=== PATIENT | female | born 1985 | race Caucasian/White ===

== ENCOUNTER 2016-07-25 15:47 | Outpatient (CLI) | payer BC ==
--- NOTE | 2016-07-26 10:20 | US ---
EXAM DATE: 07/25/16 PATIENT'S AGE: 31 Patient: JOSÉ LUIS COLLIER Facility: [place], [place] Site . Site : 1985 Study: US OB Pelvis [id number]/15/2017 5:37:30 PM Ordering Physician: Eusebio Lima Final Report: LIMITED OB ULTRASOUND INDICATION: Decreased movement. FINDINGS/IMPRESSION: Limited sonographic evaluation shows a single, live, intrauterine gestation in cephalic position. There is cardiac activity with a heart rate of 138 BPM. Amniotic fluid volume appears subjectively normal and amniotic fluid index measures 17 centimeters. breathing movements are decreased. gross movements, tone, and amniotic fluid are satisfactory. The total biophysical profile score is therefore 6/8. Dictated by Jeffrey Man MD @ 07/25/2016 6:03:24 PM Dictated by: Jeffrey Man MD @ 07/25/2016 18:04:07 (Electronic Signature) Report Signed by Proxy. KARYN
== END 2016-07-25 18:04 | disposition home or self-care (01) ==
LOC: MW.OB 15:47 → MW.OBCHECK 15:47
PROVIDERS: ATTEND Obstetrics & Gynecology
DX: O36.8190 Decreased fetal movements, unspecified trimester, not applicable or unspecified (principal)
CPT/HCPCS: 59025; 76819; 76819-26

== ENCOUNTER 2016-10-05 01:22 | Inpatient (IN) | payer BC ==
[2016-10-05] MEDS ORDERED: Sodium Chloride 0.9% 2.5 ML Syringe FLUSH PRN (02:08)
[2016-10-05] MEDS ORDERED: Sodium Chloride 0.9% 10 ML Syringe FLUSH PRN (02:08)
[2016-10-05] MEDS ORDERED: Ampicillin 2 GM in Sodium Chloride 0.9% 100 ML IV ONE (02:13)
[2016-10-05] MEDS ORDERED: Lactated Ringers 1,000 ML IV SCH (02:15)
[2016-10-05] MEDS ORDERED: Citric Acid/Sodium Citrate Solution 30 ML Cup PO SCH (02:15)
[2016-10-05] MEDS ORDERED: Oxytocin 10 Units/1 ML SDV ONE ×3 (03:33→06:04)
[2016-10-05] MEDS ORDERED: Morphine PF 10 MG/10 ML SDV ONE (03:33)
[2016-10-05] MEDS ORDERED: Ondansetron 4 MG/2 ML SDV ONE (03:34)
[2016-10-05] MEDS ORDERED: ceFAZolin 2 GM in Premix Bag 1 BAG IV ONE (04:00)
--- NOTE | 2016-10-05 04:20 | PCM.PREANE ---
Preanesthetic Assessment - Anesthesia/Transfusion/Family Hx Anesthesia History: Prior Anesthesia Without Reaction Family History of Anesthesia Reaction: No Transfusion History: No Prior Transfusion(s) - Review of Systems General: No Symptoms Pulmonary: No Symptoms Cardiovascular: No Symptoms Gastrointestinal: No Symptoms Neurological: No Symptoms Other: Reports: None - Physical Assessment NPO Status Date: 10/04/16 NPO Status Time: 21:00 Height: 1.63 m Weight: 74.843 kg ASA Class: 2E Mental Status: Alert & Oriented x3 Airway Class: Mallampati = 2 Dentition: Reports: Normal Dentition Thyro-Mental Finger Breadths: 3 Mouth Opening Finger Breadths: 3 ROM/Head Extension: Full Lungs: Clear to Auscultation, Normal Respiratory Effort Cardiovascular: Regular Rate, Regular Rhythm - Lab Values: Laboratory Last Values WBC 10.78 K/uL (4.0-11.0) 10/05/16 02:30 RBC 3.36 M/uL (4.30-5.90) L 10/05/16 02:30 Hgb 9.2 g/dL (12.0-16.0) L 10/05/16 02:30 Hct 29.1 % (36.0-46.0) L 10/05/16 02:30 MCV 86.6 fL (80.0-98.0) 10/05/16 02:30 MCH 27.4 pg (27.0-32.0) 10/05/16 02:30 MCHC 31.6 g/dL (31.0-37.0) 10/05/16 02:30 RDW Std Deviation 47.2 fl (28.0-62.0) 10/05/16 02:30 RDW Coeff of Mahendra 15 % (11.0-15.0) 10/05/16 02:30 Plt Count 254 K/uL (150-400) 10/05/16 02:30 MPV 10.30 fL (7.40-12.00) 10/05/16 02:30 Nucleated RBC % 0.0 /100WBC 10/05/16 02:30 Nucleated RBCs # 0 K/uL 10/05/16 02:30 Membrane Rupture POSITIVE 10/05/16 01:40 Blood Type B POSITIVE 10/05/16 02:30 Antibody Screen NEGATIVE 10/05/16 02:30 - Allergies Allergies/Adverse Reactions: Allergies Allergy/AdvReac Type Severity Reaction Status Date / Time No Known Allergies Allergy Verified 10/05/16 01:44 - Blood Blood Available: Yes Product(s) Available: PRBC - Acknowledgements Anesthesia Type Planned: Spinal Pt an Appropriate Candidate for the Planned Anesthesia: Yes Alternatives and Risks of Anesthesia Discussed w Pt/Guardian: Yes Pt/Guardian Understands and Agrees with Anesthesia Plan: Yes PreAnesthesia Questionnaire 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: , Other (See Below) Other OB/BYN History: tubal reversal Psychiatric 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: Other (See Below) 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 Smoking Status *Q: Never Smoker - CURRENT (IN HOUSE) MEDS Current Meds: Current Medications Citric Acid/Sodium Citrate (Bicitra Solution) 30 ml PO .ONCE FEDE Lactated Ringer's (Ringers, Lactated) 1,000 mls @ 500 mls/hr IV .BOLUS FEDE Cefazolin Sodium/Dextrose 2 gm (/ Premix) 50 mls @ 100 mls/hr IV ONETIME ONE Stop: 10/05/16 04:29 Sodium Chloride (Saline Flush) 10 ml FLUSH ASDIRECTED PRN PRN Reason: Keep Vein Open Sodium Chloride (Saline Flush) 2.5 ml FLUSH ASDIRECTED PRN PRN Reason: Keep Vein Open Discontinued Medications Ampicillin Sodium 2 gm/ Sodium (Chloride) 100 mls @ 200 mls/hr IV ONETIME ONE Stop: 10/05/16 02:42 Last Admin: 10/05/16 03:04 Dose: 200 mls/hr Morphine Sulfate (Duramorph Pf) Confirm Administered Dose 10 mg .ROUTE .STK-MED ONE Stop: 10/05/16 03:34 Ondansetron HCl (Zofran) Confirm Administered Dose 4 mg .ROUTE .STK-MED ONE Stop: 10/05/16 03:35 Oxytocin (Pitocin) Confirm Administered Dose 10 unit .ROUTE .STK-MED ONE Stop: 10/05/16 03:34 Oxytocin (Pitocin) Confirm Administered Dose 10 unit .ROUTE .STK-MED ONE Stop: 10/05/16 03:34
[2016-10-05] MEDS ORDERED: fentaNYL 100 MCG/2 ML SDV IVPUSH PRN (04:35)
[2016-10-05] MEDS ORDERED: Nalbuphine 10 MG/1 ML Vial IVPUSH PRN (04:35)
[2016-10-05] MEDS ORDERED: diphenhydrAMINE 50 MG/ML SDV IVPUSH PRN ×2 (04:38→06:10)
[2016-10-05] MEDS ORDERED: Naloxone 0.4 MG/ML Syringe IVPUSH PRN (04:39)
[2016-10-05] MEDS ORDERED: Phenylephrine/Normal Saline 100 MCG/ML 10 ML Syringe ONE (05:03)
[2016-10-05] MEDS ORDERED: ePHEDrine 50 MG/ML SDV ONE (05:06)
[2016-10-05] MEDS ORDERED: Sodium Chloride 0.9% 20 ML ONE (05:07)
[2016-10-05] MEDS ORDERED: Octyl 2-Cyanoacrylate 1 Tube ONE (05:33)
[2016-10-05] MEDS ORDERED: Acetaminophen/oxyCODONE 325-5 MG Tab PO PRN ×2 (06:00→06:10)
--- NOTE | 2016-10-05 06:09 | PCM.OPNOTE ---
- General Post-Op/Procedure Note Date of Surgery/Procedure: 10/05/16 Operative Procedure(s): repeat low transverse Findings: liveborn male 7/9 weight 3620 grams, normal appearing uterus tubes and ovaries, omental adhesions lysed. Retracted cicatrix excision and dense subcutaneous adhesions lysed. Pre Op Diagnosis: 39 weeks SROM prior desires repeat Post-Op Diagnosis: Same Anesthesia Technique: Spinal Primary Surgeon: Nedra Garza Anesthesia Provider: Chetan Bill Hop Picker: Sanam Álvarez Pathology: none Fluid Replacement, Intraop: 3,000 Output, Urine Amount: 550 EBL in mLs: 600 Complications: None known Condition: Good Free Text/Narrative:: Intake & Output 10/04/16 10/04/16 10/05/16 14:59 22:59 06:59 Intake Total 1100 Balance 1100
[2016-10-05] MEDS ORDERED: Lanolin 100% Cream 7 GM Tube TOP PRN (06:10)
[2016-10-05] MEDS ORDERED: Ondansetron 4 MG/2 ML SDV IVPUSH PRN (06:10)
[2016-10-05] MEDS ORDERED: Bisacodyl 10 MG Supp RECTAL PRN (06:10)
--- NOTE | 2016-10-05 06:36 | PCM.POSTAN ---
POST ANESTHESIA ASSESSMENT - MENTAL STATUS Mental Status: Alert, Oriented - RESPIRATORY Respiratory Status: respiratory rate WNL, Airway Patent, O2 Saturation Stable - CARDIOVASCULAR CV Status: Pulse Rate WNL, Blood Pressure Stable - GASTROINTESTINAL GI Status: No Symptoms - POST OP HYDRATION Hydration Status: Adequate & Stable
[2016-10-05] MEDS: Ketorolac 30 MG/ML SDV IVPUSH SCH ×3 (06:37→18:35)
--- NOTE | 2016-10-05 07:36 | OR ---
SURGEON: Nedra Garza M.D. DATE OF PROCEDURE: 10/05/2016 PREOPERATIVE DIAGNOSES: 1. A 39-week intrauterine . 2. Spontaneous rupture of membranes. 3. Prior delivery. 4. Desires repeat. POSTOPERATIVE DIAGNOSES: 1. A 39-week intrauterine . 2. Spontaneous rupture of membranes. 3. Prior delivery. 4. Desires repeat. PROCEDURE: Repeat low transverse section. ANESTHESIA: Spinal. ESTIMATED BLOOD LOSS: 600 mL. FLUIDS: 3000 mL crystalloid. URINE OUTPUT: 550 mL. FINDINGS: Liveborn male, score 7 and 9, weight is 3620 g. Normal-appearing uterus, tubes, and ovaries. There were omental adhesions to the anterior uterus, which were lysed. There were dense adhesions between the retracted cicatrix and the fascia, which were lysed as well as lysis of the subcutaneous adhesions. COMPLICATIONS: None known. DISPOSITION: Stable. Mother is in Recovery in good condition. is in nursery in good condition. BRIEF HISTORY: This is a 31-year-old female. She is G3, P2-0-0-2. She presents at 39 weeks' gestation with spontaneous rupture of membranes, clear fluid, positive AmniSure, category 1 heart tones. She is known to be group B strep positive. She did immediately received ampicillin 2 g IV and arrangements were made to proceed with her repeat delivery with risks having been discussed including bleeding, infection, injury to bowel, bladder, blood vessels, or other organs, risk of thromboembolic event, risk of anesthesia. Understanding these risks, she does desire to proceed. Her preop hemoglobin was 9.2. She has been anemic throughout her and is taking iron, additionally she has a personal history of HSV, but denies any symptoms of burning or irritation on the vulva at this time. DESCRIPTION OF PROCEDURE: With the patient in the left tilt position, under adequate spinal analgesia, the abdomen was prepped with chlorhexidine and draped in usual fashion for abdominal surgery. SCDs were in place. Dutta catheter had been placed and an appropriate time-out was held. After documentation of adequate analgesia, the cicatrix as well as some skin surrounding the cicatrix that was deeply retracted were excised using a scalpel and the tissue from the underlying fascia. The cicatrix was then discarded. The fascia was further incised using a scalpel in the midline to score the fascia transversely and extending the incision with curved Dove scissors. The fascia was elevated from the underlying rectus muscle, near the incision line there were dense adhesions that were lysed carefully with sharp and blunt dissection, and the rectus muscle and peritoneum were then in the midline using sharp and blunt dissection. The Joey O retractor was placed. There were some adhesions between the bladder and the visceroperitoneum of the lower uterine segment. These were lysed and an adequate bladder flap was developed. A transverse curvilinear incision was made over the lower uterine segment with a scalpel. A finger was used to enter the uterine cavity. The amniotic membranes were bulging and were ruptured at the level of the incision. The head was delivered via the incision after the incision had been extended by blunt dissection. The infant was bulb suctioned by nose and mouth. The remainder of the infant's body was delivered and at the mother's request the cord was delayed to be clamped by approximately 1 minute. It was then doubly clamped, cut, and the infant was handed to Dr. Crystal, who was in attendance at delivery. The infant was a liveborn male, score 7 and 9 (although the baby was vigorous, crying, and centrally pink when handed off). The cord blood was collected for cord ABGs as well as routine cord blood sampling. The placenta was removed by manual extraction. The uterus was cleaned with a dry laparotomy tape. The cervix was opened with a ring forceps and the uterine incision was then closed with a running lock suture of 0 Polysorb followed by an imbricating layer of 0 Polysorb. The posterior cul-de- sac pericolic gutters were carefully cleaned and inspected. The tubes and ovaries were inspected as she had a prior tubal reversal. There were some adhesions on the left anterior uterus that were lysed with electrocautery. The uterine incision was again inspected. It was completely hemostatic. Therefore, the Joey O retractor was removed. The visceral peritoneum and the rectus muscles were loosely approximated in midline using a running mattress suture of 0 Polysorb. Prior to closure, the uterine incision was again inspected and it remained completely hemostatic. The posterior aspect of the fascia was inspected and there were no areas of bleeding, therefore the fascial incision was closed with a running lock suture of 0 Polysorb. The deep subcutaneous tissue was reapproximated with a running suture of 3-0 plain and the subcutaneous tissue was reapproximated using a running subcuticular suture of 3-0 Polysorb. Skin glue was then used to complete the closure. Final sponge, needle, and instrument count were reported as correct. There were no known complications. is in nursery in good condition. Mother remains in Recovery in good condition. MATTI OSBORN /[id number]
[2016-10-05] MEDS: Lactated Ringers 1,000 ML IV SCH ×2 (08:45→18:44)
--- NOTE | 2016-10-05 15:26 | PCM48HPAN ---
Post Anesthesia Note - EVALUATION WITHIN 48HRS OF ANESTHETIC Vital Signs in Normal Range: Yes Patient Participated in Evaluation: Yes Respiratory Function Stable: Yes Airway Patent: Yes Cardiovascular Function Stable: Yes Hydration Status Stable: Yes Pain Control Satisfactory: Yes Nausea and Vomiting Control Satisfactory: Yes Mental Status Recovered: Yes
[2016-10-05] MEDS: Docusate Sodium 100 MG Cap PO SCH (21:35)
[2016-10-06] MEDS: Ketorolac 30 MG/ML SDV IVPUSH SCH ×2 (00:20→06:12)
--- NOTE | 2016-10-06 08:34 | PCM.PNPP ---
<Josie Garrido - Last Filed: 10/06/16 08:39> - General Info Date of Service: 10/06/16 Functional Status: Reports: Pain Controlled, Tolerating Diet, Ambulating, Urinating - Review of Systems General: Denies: Fever, Weakness, Fatigue Pulmonary: Denies: Shortness of Breath, Pleuritic Chest Pain, Cough Cardiovascular: Denies: Chest Pain, Palpitations, Dyspnea on Exertion Gastrointestinal: Denies: Abdominal Pain Genitourinary: Denies: Dysuria - General Info Date of Service: 10/06/16 - Patient Data Vital Signs - Most Recent: Last Vital Signs Temp 36.8 C 10/06/16 04:00 Pulse 99 10/06/16 05:19 Resp 17 10/06/16 05:19 BP 111/65 10/06/16 04:00 Pulse Ox 99 10/06/16 05:19 Weight - Most Recent: 74.843 kg I&O - Last 24 Hours: Intake & Output 10/05/16 10/06/16 10/06/16 22:59 06:59 14:59 Intake Total 2200 Output Total 1200 2200 Balance 1000 -2200 Lab Results - Last 24 Hours: Laboratory Results - last 24 hr 10/06/16 Range/Units 05:05 Hgb 6.6 L (12.0-16.0) g/dL Hct 20.7 L (36.0-46.0) % Med Orders - Current: Current Medications Bisacodyl (Dulcolax) 10 mg RECTAL .ONCE PRN PRN Reason: Constipation Citric Acid/Sodium Citrate (Bicitra Solution) 30 ml PO .ONCE FEDE Last Admin: 10/05/16 04:47 Dose: 30 ml Diphenhydramine HCl (Benadryl) 25 mg IVPUSH Q6H PRN PRN Reason: Itching or Nausea Docusate Sodium (Colace) 100 mg PO BID FEDE Last Admin: 10/05/16 21:35 Dose: 100 mg Emollient Ointment (Lansinoh Hpa) 0 gm TOP ASDIRECTED PRN PRN Reason: Sore Nipples Lactated Ringer's (Ringers, Lactated) 1,000 mls @ 500 mls/hr IV .BOLUS [facility] Last Admin: 10/05/16 04:39 Dose: 999 mls/hr Lactated Ringer's (Ringers, Lactated) 1,000 mls @ 125 mls/hr IV ASDIRECTED [facility] Last Infusion: 10/05/16 16:45 Dose: Infused Ibuprofen (Motrin) 800 mg PO Q8H PRN PRN Reason: mild pain or fever Ondansetron HCl (Zofran) 4 mg IVPUSH Q4H PRN PRN Reason: Nausea/Vomiting Last Admin: 10/05/16 12:07 Dose: 4 mg Oxycodone/Acetaminophen (Percocet 325-5 Mg) 1 - 2 tab PO Q4H PRN PRN Reason: Pain (moderate 4-6) Sodium Chloride (Saline Flush) 10 ml FLUSH ASDIRECTED PRN PRN Reason: Keep Vein Open Sodium Chloride (Saline Flush) 2.5 ml FLUSH ASDIRECTED PRN PRN Reason: Keep Vein Open Discontinued Medications Diphenhydramine HCl (Benadryl) 25 - 50 mg IVPUSH Q4H PRN PRN Reason: Itching Stop: 10/06/16 06:38 Ephedrine Sulfate (Ephedrine Sulfate) Confirm Administered Dose 50 mg .ROUTE .STK-MED ONE Stop: 10/05/16 05:07 Fentanyl (Sublimaze) 50 - 100 mcg IVPUSH Q5M PRN PRN Reason: Breakthrough Pain Stop: 10/06/16 04:36 Ampicillin Sodium 2 gm/ Sodium (Chloride) 100 mls @ 200 mls/hr IV ONETIME ONE Stop: 10/05/16 02:42 Last Admin: 10/05/16 03:04 Dose: 200 mls/hr Cefazolin Sodium/Dextrose 2 gm (/ Premix) 50 mls @ 100 mls/hr IV ONETIME ONE Stop: 10/05/16 04:29 Last Admin: 10/05/16 22:55 Dose: Not Given Sodium Chloride (Normal Saline) Confirm Administered Dose 20 mls @ as directed .ROUTE .STK-MED ONE Stop: 10/05/16 05:08 Ketorolac Tromethamine (Toradol) 30 mg IVPUSH Q6H [facility] Stop: 10/06/16 06:01 Last Admin: 10/06/16 06:12 Dose: 30 mg Morphine Sulfate (Duramorph Pf) Confirm Administered Dose 10 mg .ROUTE .STK-MED ONE Stop: 10/05/16 03:34 Nalbuphine HCl (Nubain) 2.5 - 10 mg IVPUSH Q3H PRN PRN Reason: Pruritis Stop: 10/06/16 06:37 Naloxone HCl (Narcan) 0.1 mg IVPUSH ONETIME PRN PRN Reason: Respiratory Depression Stop: 10/06/16 04:39 Octyl Cyanoacrylate (Dermabond Advance) Confirm Administered Dose 1 applic .ROUTE .STK-MED ONE Stop: 10/05/16 05:34 Ondansetron HCl (Zofran) Confirm Administered Dose 4 mg .ROUTE .STK-MED ONE Stop: 10/05/16 03:35 Oxycodone/Acetaminophen (Percocet 325-5 Mg) 1 - 2 tab PO Q4H PRN PRN Reason: Breakthrough Pain Stop: 10/06/16 06:00 Oxytocin (Pitocin) Confirm Administered Dose 10 unit .ROUTE .STK-MED ONE Stop: 10/05/16 03:34 Oxytocin (Pitocin) Confirm Administered Dose 10 unit .ROUTE .STK-MED ONE Stop: 10/05/16 03:34 Oxytocin (Pitocin) Confirm Administered Dose 20 unit .ROUTE .STK-MED ONE Stop: 10/05/16 06:05 Phenylephrine HCl (Phenylephrine In Ns 100 Mcg/Ml) Confirm Administered Dose 1 mg .ROUTE .STK-MED ONE Stop: 10/05/16 05:04 - Infant Interaction Disposition, : to Nursery Infant Interaction: Holding Feeding: Attempted ; Nursed Fair/Poor Support Person: - Recovery Exam Fundal Tone: Firm Fundal Level: At Umbilicus Fundal Placement: Midline Lochia Amount: Small Lochia Color: Rubra/Red Perineum Description: Intact, Minimal Bruising/Swelling Episiotomy/Laceration: None Bladder Status: Indwelling Catheter in Place Urinary Elimination: Indwelling Catheter - Exam General: Alert, Oriented Neck: Supple Lungs: Clear to Auscultation, Normal Respiratory Effort Cardiovascular: Regular Rate, Regular Rhythm GI/Abdominal Exam: Normal Bowel Sounds, Soft, Non-Tender Psy/Mental Status: Alert - Problem List & Annotations (1) delivery delivered SNOMED Code(s): 598243030 Code(s): O82 - ENCOUNTER FOR DELIVERY WITHOUT INDICATION Status: Acute - Problem List Review Problem List Initiated/Reviewed/Updated: Yes - Assessment Assessment:: POD#1 from RLTCS. Minimal pain an lochia. Vital signs WNL. Denies orthostatic changes. Will continue iron supplementation. Will start patient on Wellbutrin 150mg PO daily for hx of depression/anxiety. - Plan Plan:: Continue routine postop cares. <Nedra Garza - Last Filed: 10/06/16 18:33> - Patient Data Vital Signs - Most Recent: Last Vital Signs Temp 36.6 C 10/06/16 09:00 Pulse 95 10/06/16 09:00 Resp 18 10/06/16 09:00 BP 133/85 10/06/16 09:00 Pulse Ox 100 10/06/16 09:00 I&O - Last 24 Hours: Intake & Output 10/06/16 10/06/16 10/06/16 06:59 14:59 22:59 Output Total 2200 Balance -2200 Lab Results - Last 24 Hours: Laboratory Results - last 24 hr 10/06/16 Range/Units 05:05 Hgb 6.6 L (12.0-16.0) g/dL Hct 20.7 L (36.0-46.0) % Med Orders - Current: Current Medications Discontinued Medications Bisacodyl (Dulcolax) 10 mg RECTAL .ONCE PRN PRN Reason: Constipation Citric Acid/Sodium Citrate (Bicitra Solution) 30 ml PO .ONCE FEDE Last Admin: 10/05/16 04:47 Dose: 30 ml Diphenhydramine HCl (Benadryl) 25 - 50 mg IVPUSH Q4H PRN PRN Reason: Itching Stop: 10/06/16 06:38 Diphenhydramine HCl (Benadryl) 25 mg IVPUSH Q6H PRN PRN Reason: Itching or Nausea Docusate Sodium (Colace) 100 mg PO BID FEDE Last Admin: 10/06/16 09:18 Dose: 100 mg Emollient Ointment (Lansinoh Hpa) 0 gm TOP ASDIRECTED PRN PRN Reason: Sore Nipples Ephedrine Sulfate (Ephedrine Sulfate) Confirm Administered Dose 50 mg .ROUTE .STK-MED ONE Stop: 10/05/16 05:07 Fentanyl (Sublimaze) 50 - 100 mcg IVPUSH Q5M PRN PRN Reason: Breakthrough Pain Stop: 10/06/16 04:36 Lactated Ringer's (Ringers, Lactated) 1,000 mls @ 500 mls/hr IV .BOLUS [facility] Last Admin: 10/05/16 04:39 Dose: 999 mls/hr Ampicillin Sodium 2 gm/ Sodium (Chloride) 100 mls @ 200 mls/hr IV ONETIME ONE Stop: 10/05/16 02:42 Last Admin: 10/05/16 03:04 Dose: 200 mls/hr Cefazolin Sodium/Dextrose 2 gm (/ Premix) 50 mls @ 100 mls/hr IV ONETIME ONE Stop: 10/05/16 04:29 Last Admin: 10/05/16 22:55 Dose: Not Given Sodium Chloride (Normal Saline) Confirm Administered Dose 20 mls @ as directed .ROUTE .STK-MED ONE Stop: 10/05/16 05:08 Lactated Ringer's (Ringers, Lactated) 1,000 mls @ 125 mls/hr IV ASDIRECTED [facility] Last Infusion: 10/05/16 16:45 Dose: Infused Ibuprofen (Motrin) 800 mg PO Q8H PRN PRN Reason: mild pain or fever Last Admin: 10/06/16 11:56 Dose: 800 mg Ketorolac Tromethamine (Toradol) 30 mg IVPUSH Q6H [facility] Stop: 10/06/16 06:01 Last Admin: 10/06/16 06:12 Dose: 30 mg Morphine Sulfate (Duramorph Pf) Confirm Administered Dose 10 mg .ROUTE .STK-MED ONE Stop: 10/05/16 03:34 Nalbuphine HCl (Nubain) 2.5 - 10 mg IVPUSH Q3H PRN PRN Reason: Pruritis Stop: 10/06/16 06:37 Naloxone HCl (Narcan) 0.1 mg IVPUSH ONETIME PRN PRN Reason: Respiratory Depression Stop: 10/06/16 04:39 Octyl Cyanoacrylate (Dermabond Advance) Confirm Administered Dose 1 applic .ROUTE .STK-MED ONE Stop: 10/05/16 05:34 Ondansetron HCl (Zofran) Confirm Administered Dose 4 mg .ROUTE .STK-MED ONE Stop: 10/05/16 03:35 Ondansetron HCl (Zofran) 4 mg IVPUSH Q4H PRN PRN Reason: Nausea/Vomiting Last Admin: 10/05/16 12:07 Dose: 4 mg Oxycodone/Acetaminophen (Percocet 325-5 Mg) 1 - 2 tab PO Q4H PRN PRN Reason: Breakthrough Pain Stop: 10/06/16 06:00 Oxycodone/Acetaminophen (Percocet 325-5 Mg) 1 - 2 tab PO Q4H PRN PRN Reason: Pain (moderate 4-6) Last Admin: 10/06/16 12:30 Dose: 1 tab Oxytocin (Pitocin) Confirm Administered Dose 10 unit .ROUTE .STK-MED ONE Stop: 10/05/16 03:34 Oxytocin (Pitocin) Confirm Administered Dose 10 unit .ROUTE .STK-MED ONE Stop: 10/05/16 03:34 Oxytocin (Pitocin) Confirm Administered Dose 20 unit .ROUTE .STK-MED ONE Stop: 10/05/16 06:05 Phenylephrine HCl (Phenylephrine In Ns 100 Mcg/Ml) Confirm Administered Dose 1 mg .ROUTE .STK-MED ONE Stop: 10/05/16 05:04 Sodium Chloride (Saline Flush) 10 ml FLUSH ASDIRECTED PRN PRN Reason: Keep Vein Open Sodium Chloride (Saline Flush) 2.5 ml FLUSH ASDIRECTED PRN PRN Reason: Keep Vein Open - Problem List Review Problem List Initiated/Reviewed/Updated: Yes - My Orders Last 24 Hours: My Active Orders 10/06/16 16:30 Ready for Discharge [RC] PER UNIT ROUTINE - Plan Plan:: Patient was seen and examined by me. She denies dizziness or fatigue, ambulates without difficulty related to her anemia, has she has had chronic anemia through the . She will continue to take iron. Discharge instructions were reviewed as I anticipate baby may be transferred. Reviewed precautions to walk every 1-2 hours if she travels maintain hydration, no driving for 2 weeks and no lifting more than 10 #
[2016-10-06] MEDS: Docusate Sodium 100 MG Cap PO SCH (09:18)
[2016-10-06] MEDS ORDERED: Ibuprofen 800 MG Tab PO PRN (12:00)
[2016-10-06 15:33] VITALS: BP 133/85
== END 2016-10-06 13:54 | disposition home or self-care (01) | DRG 540 ==
LOC: MW.OBCHECK 01:22 → MW.OB 01:25 → MW.OBCHECK 02:08 → MW.OB 05:06
PROVIDERS: ADMIT Obstetrics & Gynecology; ATTEND Obstetrics & Gynecology
PROC: 10D00Z1 Extraction of Products of Conception, Low, Open Approach (ICD-10-PCS; principal; 2016-10-05)
DX: O42.02 Full-term premature rupture of membranes, onset of labor within 24 hours of rupture (principal); O99.824 Streptococcus B carrier state complicating childbirth; Z3A.39 39 weeks gestation of pregnancy; Z37.0 Single live birth
CPT/HCPCS: 01961; 36415; 59025; 84112; 85014; 85018; 85027; 86850; 86900; 86901; A9270-GY; J0290; J0690; J1885; J2270; J2405; J2590; J7030; J7120

== ENCOUNTER 2020-03-07 21:33 | Emergency (ER) | payer BC ==
--- NOTE | 2020-03-07 22:01 | EDM.PDOC ---
ED HPI GENERAL MEDICAL PROBLEM - General Chief Complaint: General Stated Complaint: COUGH, TROUBLE BREATHING, CHEST PAIN Time Seen by Provider: 03/07/20 21:36 Source of Information: Reports: Patient History Limitations: Reports: No Limitations - History of Present Illness INITIAL COMMENTS - FREE TEXT/NARRATIVE: 34-year-old female presents today for chest pain body aches and cough. Patient's family says that for about a week and so someone on Monday was tested for Covid and it was negative. Patient states she occasionally has a productive cough but does not feel short of breath. Patient still tolerating p.o. has no nausea or vomiting abdominal pain. 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: , Other (See Below) Other POWERHOUSE OPERATOR History: tubal reversal Musculoskeletal 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: None Neurological 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: None Psychiatric 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: Anxiety, Depression Other Psychiatric History: post depression Insulin Pump Model and Quarter Backer: None Hematologic 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: None Immunologic 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: None Oncologic (Cancer) 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: None Dermatologic 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: None - Infectious Disease History Infectious Disease 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: None - Past Surgical History Head Surgeries/Procedures: Reports: None Female Surgical 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: Section Social & Family History - Family History Family Medical History: No Pertinent Family History - Tobacco Use Tobacco Use Status *Q: Never Tobacco User - Caffeine Use Caffeine Use: Reports: Coffee - Recreational Drug Use Recreational Drug Use: No ED ROS GENERAL - Review of Systems Review Of Systems: See Below Constitutional: Reports: No Symptoms HEENT: Reports: No Symptoms Respiratory: Reports: Cough Cardiovascular: Reports: Chest Pain Endocrine: Reports: No Symptoms GI/Abdominal: Reports: No Symptoms : Reports: No Symptoms Musculoskeletal: Reports: No Symptoms Skin: Reports: No Symptoms Neurological: Reports: No Symptoms Psychiatric: Reports: No Symptoms Hematologic/Lymphatic: Reports: No Symptoms Immunologic: Reports: No Symptoms ED EXAM, GENERAL - Physical Exam Exam: See Below Exam Limited By: No Limitations General Appearance: Alert, WD/WN Eye Exam: Bilateral Eye: EOMI, PERRL Head: Atraumatic Respiratory/Chest: No Respiratory Distress, Lungs Clear, Normal Breath Sounds Cardiovascular: Normal Peripheral Pulses, Regular Rate, Rhythm, No Edema GI/Abdominal: Normal Bowel Sounds, Soft, Non-Tender, No Organomegaly Extremities: Normal Inspection, Normal Range of Motion, Non-Tender Neurological: Alert, Oriented, Normal Cognition #1 Interpretation EKG Date: 03/07/20 Time: 21:45 Rhythm: NSR Rate (Beats/Min): 68 ST-T: Normal Course - Vital Signs Last Recorded V/S: Last Vital Signs Temp 97 F 03/07/20 21:35 Pulse 75 03/07/20 21:35 Resp 18 03/07/20 21:35 BP 125/73 03/07/20 21:35 Pulse Ox 98 03/07/20 21:35 - Orders/Labs/Meds Labs: Laboratory Tests 03/07/20 03/07/20 03/07/20 Range/Units 22:03 22:08 22:08 WBC 7.87 (4.0-11.0) K/uL RBC 4.21 L (4.30-5.90) M/uL Hgb 12.5 (12.0-16.0) g/dL Hct 38.6 (36.0-46.0) % MCV 91.7 (80.0-98.0) fL MCH 29.7 (27.0-32.0) pg MCHC 32.4 (31.0-37.0) g/dL RDW Std Deviation 42.7 (28.0-62.0) fl RDW Coeff of Mahendra 13 (11.0-15.0) % Plt Count 257 (150-400) K/uL MPV 10.30 (7.40-12.00) fL Neut % (Auto) 62.3 (48.0-80.0) % Lymph % (Auto) 27.8 (16.0-40.0) % Wetzel % (Auto) 8.1 (0.0-15.0) % Eos % (Auto) 1.4 (0.0-7.0) % Baso % (Auto) 0.4 (0.0-1.5) % Neut # (Auto) 4.9 (1.4-5.7) K/uL Lymph # (Auto) 2.2 (0.6-2.4) K/uL Wetzel # (Auto) 0.6 (0.0-0.8) K/uL Eos # (Auto) 0.1 (0.0-0.7) K/uL Baso # (Auto) 0.0 (0.0-0.1) K/uL Nucleated RBC % 0.0 /100WBC Nucleated RBCs # 0 K/uL Sodium 137 (136-145) mmol/L Potassium 3.4 L (3.5-5.1) mmol/L Chloride 104 (98-107) mmol/L Carbon Dioxide 29.1 (21.0-32.0) mmol/L BUN 14 (7.0-18.0) mg/dL Creatinine 0.9 (0.6-1.0) mg/dL Est Cr Clr Drug Dosing TNP Estimated GFR (MDRD) > 60.0 ml/min Glucose 91 (74-106) mg/dL Calcium 9.2 (8.5-10.1) mg/dL Total Bilirubin 0.2 (0.2-1.0) mg/dL AST 9 L (15-37) IU/L ALT 16 (14-63) IU/L Alkaline Phosphatase 57 (46-116) U/L Creatine Kinase 62 (26-308) U/L Troponin I < 0.050 (0.000-0.056) ng/mL Total Protein 7.5 (6.4-8.2) g/dL Albumin 3.7 (3.4-5.0) g/dL Globulin 3.8 (2.6-4.0) g/dL Albumin/Globulin Ratio 1.0 (0.9-1.6) Urine HCG, Qual NEGATIVE (NEGATIVE) - Re-Assessments/Exams Free Text/Narrative Re-Assessment/Exam: 03/07/20 23:06 Patient EKG labs and x-ray reviewed all normal. Patient is satting 100% on room air. Patient has no Covid symptoms. Patient will be discharged home with symptomatic treatment. Departure - Departure Time of Disposition: 23:07 Disposition: Home, Self-Care 01 Condition: Good Clinical Impression: Viral illness - Discharge Information *PRESCRIPTION DRUG MONITORING PROGRAM REVIEWED*: Not Applicable *COPY OF PRESCRIPTION DRUG MONITORING REPORT IN PATIENT MEREDITH: Not Applicable Instructions: Viral Respiratory Infection, [id number] Referrals: Theo Gusman MD [Primary Care Provider] - Forms: ED Department Discharge Additional Instructions: The following information is given to patients seen in the emergency department who are being discharged to home. This information is to outline your options for follow-up care. We provide all patients seen in our emergency department with a follow-up referral. The need for follow-up, as well as the timing and circumstances, are variable depending upon the specifics of your emergency department visit. If you don't have a primary care physician on staff, we will provide you with a referral. We always advise you to contact your personal physician following an emergency department visit to inform them of the circumstance of the visit and for follow-up with them and/or the need for any referrals to a consulting specialist. The emergency department will also refer you to a specialist when appropriate. This referral assures that you have the opportunity for follow-up care with a specialist. All of these measure are taken in an effort to provide you with optimal care, which includes your follow-up. Under all circumstances we always encourage you to contact your private physician who remains a resource for coordinating your care. When calling for follow-up care, please make the office aware that this follow-up is from your recent emergency room visit. If for any reason you are refused follow-up, please contact the [facility] Emergency Department at and asked to speak to the emergency department charge nurse. Please follow up with your primary care physician. If you do not have a primary care physician, see below: [facility] [address] [place] [id number] [facility] [address] [place] [id number] Follow-up with your primary care physician if you have any increased shortness of breath or chest pain please return to the emergency department. Sepsis Event Note (ED) - Evaluation Sepsis Screening Result: No Definite Risk - Focused Exam Vital Signs: Vital Signs Temp Pulse Resp BP Pulse Ox 03/07/20 21:35 97 F 75 18 125/73 98 - Assessment/Plan Assessment:: Patient is a 34-year-old female presents today for body aches and cough. Patient sat Hund percent on room air and looks well. Patient EKG also reviewed no signs of any [place]. Will have x-ray labs and reassess.
[2020-03-07 22:43] LABS: BLOOD UREA NITROGEN,BUN 14 mg/dL (7.0-18.0); CARBON DIOXIDE,CO2 29.1 mmol/L (21.0-32.0); CHLORIDE,CL 104 mmol/L (98-107); GLUCOSE RANDOM 91 mg/dL (74-106); POTASSIUM,K 3.4 mmol/L (3.5-5.1); SODIUM,NA 137 mmol/L (136-145)
--- NOTE | 2020-03-07 23:05 | CR ---
INDICATION: Cough and chest pain. TECHNIQUE: Portable AP chest. FINDINGS: Lungs are clear. Normal heart size and pulmonary vascularity. No pleural effusion. No pneumothorax. IMPRESSION: Normal chest. Dictated by Levi Mendoza MD @ Mar 07 2020 10:59PM Signed by Dr. Levi Mendoza @ Mar 07 2020 11:04PM
[2020-03-07 23:20] VITALS: BP 109/54; PULSE 60
== END 2020-03-07 23:18 | disposition home or self-care (01) ==
LOC: MW.ED 21:33
DX: B34.9 Viral infection, unspecified (principal); F41.9 Anxiety disorder, unspecified; F32.9 Major depressive disorder, single episode, unspecified; Z79.899 Other long term (current) drug therapy
CPT/HCPCS: 36415; 71045; 71045-26; 80053; 81025; 82550; 84484; 85025; 93005; 93010; 99282; 99285-25

== ENCOUNTER 2020-06-07 10:41 | Emergency (ER) | payer BC ==
[2020-06-07] MEDS ORDERED: Sodium Chloride 0.9% 2.5 ML Syringe FLUSH PRN (11:04)
[2020-06-07] MEDS ORDERED: Sodium Chloride 0.9% 10 ML Syringe FLUSH PRN (11:04)
--- NOTE | 2020-06-07 11:11 | EDM.PDOC ---
ED HPI GENERAL MEDICAL PROBLEM - General Chief Complaint: Respiratory Problem Stated Complaint: CHEST PAIN, POSSIBLE PNEUMONIA Time Seen by Provider: 06/07/20 10:44 - History of Present Illness INITIAL COMMENTS - FREE TEXT/NARRATIVE: 34-year-old female relatively well at baseline on levothyroxine for hypothyroidism as well as citalopram who is presenting with chest pain. Patient has had a problematic and uncomfortable cough for the last 2 to 2-1/2 weeks. It started with nasal congestion and sinus pressure and then seemed to move down into her chest. She has had significant trouble with drainage nausea as well as an uncomfortable cough. She saw her primary care doctor last week and was diagnosed with bronchitis she was given prescriptions for Tylenol with codeine as well as prednisone and doxycycline. However, the next day when she took the prednisone and doxycycline she vomited and felt quite poorly. She took 1 additional dose of each of the prednisone and doxycycline separately over the next 2 days but otherwise has not taken any of the prescribed medications. Starting yesterday afternoon patient developed more uncomfortable chest pressure associated with lightheadedness and worsening nausea. No syncope no pleuritic pain no severe pain in the back. Patient describes it as a moderate tightness across her upper chest and in the center of her chest. It worsens with coughing. No lower extremity pain or swelling. No sick contacts. Patient's son had surgery this week and so 5 days ago she was tested for COVID and this was negative. chest Pain Score (Numeric/FACES): 4 - Related Data Allergies Allergy/AdvReac Type Severity Reaction Status Date / Time No Known Allergies Allergy Verified 06/07/20 10:50 Home Meds: Home Meds Citalopram [Citalopram HBr] 30 mg PO DAILY 03/07/20 [History] Levothyroxine 75 mcg PO ACBREAKFAST 03/07/20 [History] Acetaminophen/Codeine [Tylenol with Codeine No.3 300MG/30MG] 1 tab PO Q6HR PRN 3 Days #12 tab 03/08/20 [Rx] Albuterol Sulfate [Albuterol Sulfate HFA] 8.5 gm INH Q6HR #1 inhaler 06/07/20 [Rx] Doxycycline [Vibramycin] 06/07/20 [History] Past Medical History HEENT 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: None Cardiovascular 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: None Respiratory 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: None Gastrointestinal 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: None Genitourinary 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: None ICE CUTTER 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: , 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 (See Below) Other ICE CUTTER History: tubal reversal Musculoskeletal 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: None Neurological 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: None Psychiatric 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: Anxiety, Depression Other Psychiatric History: post depression Insulin Pump Model and Enforcement Officer: None Hematologic 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: None Immunologic 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: None Oncologic (Cancer) 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: None Dermatologic 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: None - Infectious Disease History Infectious Disease 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: None - Past Surgical History Head Surgeries/Procedures: Reports: None Female Surgical 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: Section Social & Family History - Family History Family Medical History: No Pertinent Family History - Tobacco Use Tobacco Use Status *Q: Never Tobacco User - Caffeine Use Caffeine Use: Reports: Coffee - Recreational Drug Use Recreational Drug Use: No ED ROS GENERAL - Review of Systems Review Of Systems: See Below Free Text/Narrative/Comment: General: No fever. Skin: No rash. Eyes: No vision problems. ENT: Per HPI Neck: No neck stiffness. Respiratory: Per HPI Cardiac: Per HPI Gastrointestinal: Positive nausea but no vomiting or abdominal pain Urinary: No dysuria. Musculoskeletal: No myalgias/arthralgias. Neurologic: No headache. ED EXAM, GENERAL - Physical Exam Exam: See Below Free Text/Narrative:: General Appearance: No acute distress, appears comfortable Skin: No rash HEENT: Normocephalic/atraumatic, sclera anicteric, mucous membranes moist Neck: Normal range of motion Chest and Lungs: Bilateral breath sounds, clear to auscultation Cardiovascular: Regular rate and rhythm, no murmur Abdomen: Soft, non-tender Back: Normal Musculoskeletal: No edema or tenderness Neurologic: Awake, alert, no obvious deficits, moving all extremities Psychiatric: Appropriate, cooperative #1 Interpretation EKG Date: 06/07/20 Time: 10:55 EKG Interpretation Comments: Normal sinus rhythm rate of 64 MN interval slightly prolonged at 226 QTC normal at 4 right normal axis no acute ischemia Course - Vital Signs Last Recorded V/S: Last Vital Signs Temp 98 F 06/07/20 10:46 Pulse 64 06/07/20 10:46 Resp 18 06/07/20 10:46 BP 122/63 06/07/20 10:46 Pulse Ox 99 06/07/20 10:46 - Orders/Labs/Meds Orders: Active Orders 24 hr Category Date Time Status Sodium Chloride 0.9% [Saline Flush] Med 06/07/20 11:04 Active 10 ml FLUSH ASDIRECTED PRN Sodium Chloride 0.9% [Saline Flush] Med 06/07/20 11:04 Active 2.5 ml FLUSH ASDIRECTED PRN Saline Lock Insert [OM.PC] Stat Oth 06/07/20 11:05 Ordered Medication Orders Sodium Chloride (Sodium Chloride 0.9% 10 Ml Syringe) 10 ml FLUSH ASDIRECTED PRN PRN Reason: Keep Vein Open Last Admin: 06/07/20 11:24 Dose: 10 ml Documented by: MITCHELL Sodium Chloride (Sodium Chloride 0.9% 2.5 Ml Syringe) 2.5 ml FLUSH ASDIRECTED PRN PRN Reason: Keep Vein Open Last Admin: 06/07/20 11:22 Dose: 2.5 ml Documented by: MITCHELL Labs: Laboratory Tests 06/07/20 06/07/20 06/07/20 Range/Units 11:16 11:16 11:16 WBC 6.88 (4.0-11.0) K/uL RBC 3.86 L (4.30-5.90) M/uL Hgb 11.5 L (12.0-16.0) g/dL Hct 35.5 L (36.0-46.0) % MCV 92.0 (80.0-98.0) fL MCH 29.8 (27.0-32.0) pg MCHC 32.4 (31.0-37.0) g/dL RDW Std Deviation 44.3 (28.0-62.0) fl RDW Coeff of Mahendra 13 (11.0-15.0) % Plt Count 234 (150-400) K/uL MPV 10.30 (7.40-12.00) fL Neut % (Auto) 63.3 (48.0-80.0) % Lymph % (Auto) 23.8 (16.0-40.0) % [place]ombs % (Auto) 10.0 (0.0-15.0) % Eos % (Auto) 2.6 (0.0-7.0) % Baso % (Auto) 0.3 (0.0-1.5) % Neut # (Auto) 4.4 (1.4-5.7) K/uL Lymph # (Auto) 1.6 (0.6-2.4) K/uL [place]ombs # (Auto) 0.7 (0.0-0.8) K/uL Eos # (Auto) 0.2 (0.0-0.7) K/uL Baso # (Auto) 0.0 (0.0-0.1) K/uL Nucleated RBC % 0.0 /100WBC Nucleated RBCs # 0 K/uL D-Dimer, Quantitative 0.58 H (0.0-0.50) mg/L FEU Sodium 140 (136-145) mmol/L Potassium 3.5 (3.5-5.1) mmol/L Chloride 104 (98-107) mmol/L Carbon Dioxide 29.7 (21.0-32.0) mmol/L BUN 13 (7.0-18.0) mg/dL Creatinine 0.8 (0.6-1.0) mg/dL Est Cr Clr Drug Dosing 84.76 mL/min Estimated GFR (MDRD) > 60.0 ml/min Glucose 86 (74-106) mg/dL Calcium 8.2 L (8.5-10.1) mg/dL Total Bilirubin 0.3 (0.2-1.0) mg/dL AST 11 L (15-37) IU/L ALT 21 (14-63) IU/L Alkaline Phosphatase 56 (46-116) U/L Troponin I < 0.050 (0.000-0.056) ng/mL Total Protein 6.9 (6.4-8.2) g/dL Albumin 3.4 (3.4-5.0) g/dL Globulin 3.5 (2.6-4.0) g/dL Albumin/Globulin Ratio 1.0 (0.9-1.6) Urine HCG, Qual (NEGATIVE) 06/07/20 Range/Units 11:22 WBC (4.0-11.0) K/uL RBC (4.30-5.90) M/uL Hgb (12.0-16.0) g/dL Hct (36.0-46.0) % MCV (80.0-98.0) fL MCH (27.0-32.0) pg MCHC (31.0-37.0) g/dL RDW Std Deviation (28.0-62.0) fl RDW Coeff of Mahendra (11.0-15.0) % Plt Count (150-400) K/uL MPV (7.40-12.00) fL Neut % (Auto) (48.0-80.0) % Lymph % (Auto) (16.0-40.0) % [place]ombs % (Auto) (0.0-15.0) % Eos % (Auto) (0.0-7.0) % Baso % (Auto) (0.0-1.5) % Neut # (Auto) (1.4-5.7) K/uL Lymph # (Auto) (0.6-2.4) K/uL Toombs # (Auto) (0.0-0.8) K/uL Eos # (Auto) (0.0-0.7) K/uL Baso # (Auto) (0.0-0.1) K/uL Nucleated RBC % /100WBC Nucleated RBCs # K/uL D-Dimer, Quantitative (0.0-0.50) mg/L FEU Sodium (136-145) mmol/L Potassium (3.5-5.1) mmol/L Chloride (98-107) mmol/L Carbon Dioxide (21.0-32.0) mmol/L BUN (7.0-18.0) mg/dL Creatinine (0.6-1.0) mg/dL Est Cr Clr Drug Dosing mL/min Estimated GFR (MDRD) ml/min Glucose (74-106) mg/dL Calcium (8.5-10.1) mg/dL Total Bilirubin (0.2-1.0) mg/dL AST (15-37) IU/L ALT (14-63) IU/L Alkaline Phosphatase (46-116) U/L Troponin I (0.000-0.056) ng/mL Total Protein (6.4-8.2) g/dL Albumin (3.4-5.0) g/dL Globulin (2.6-4.0) g/dL Albumin/Globulin Ratio (0.9-1.6) Urine HCG, Qual NEGATIVE (NEGATIVE) Meds: Medications Generic Name Dose Route Start Last Admin Trade Name Freq PRN Reason Stop Dose Admin Sodium Chloride 10 ml 06/07/20 11:04 06/07/20 11:24 Sodium Chloride 0.9% 10 Ml Syringe FLUSH 10 ml ASDIRECTED PRN Administration Keep Vein Open Sodium Chloride 2.5 ml 06/07/20 11:04 06/07/20 11:22 Sodium Chloride 0.9% 2.5 Ml Syringe FLUSH 2.5 ml ASDIRECTED PRN Administration Keep Vein Open Discontinued Medications Generic Name Dose Route Start Last Admin Trade Name Jagdish PRN Reason Stop Dose Admin Iopamidol 80 ml 06/07/20 13:12 06/07/20 13:13 Iopamidol 755 Mg/Ml 500 Ml Multipack Bottle IVPUSH 06/07/20 13:13 80 ml ONETIME ONE Administration Departure - Departure Time of Disposition: 13:53 Disposition: Home, Self-Care 01 Condition: Good Clinical Impression: Bronchitis - Discharge Information *PRESCRIPTION DRUG MONITORING PROGRAM REVIEWED*: Not Applicable *COPY OF PRESCRIPTION DRUG MONITORING REPORT IN PATIENT MEREDITH: Not Applicable Prescriptions: Albuterol Sulfate [Albuterol Sulfate HFA] 8.5 gm INH Q6HR #1 inhaler Instructions: Metered Dose Inhaler (No Spacer Used) Forms: ED Department Discharge Additional Instructions: Your labs today were good. Though your D-dimer was very mildly elevated the CT scan of your chest showed no signs of pulmonary embolism (blood clot in your lung). It also showed no sign of pneumonia or other pathology inside your chest. I think it is most likely that all of the drainage that you are having is causing a bronchitis and irritation of your chest. I would encourage you to try Mucinex or Mucinex D. Mucinex D has a decongestant in it can make some people feel antsy or develop palpitations. However it is a safe medication and many people find relief with it. I also encourage you to try the albuterol inhaler I recommend starting with 2 puffs every 6 hours for the rest of the day today. Please be sure to follow-up with your primary care doctor as well. The following information is given to patients seen in the emergency department who are being discharged to home. This information is to outline your options for follow-up care. We provide all patients seen in our emergency department with a follow-up referral. The need for follow-up, as well as the timing and circumstances, are variable depending upon the specifics of your emergency department visit. If you don't have a primary care physician on staff, we will provide you with a referral. We always advise you to contact your personal physician following an emergency department visit to inform them of the circumstance of the visit and for follow-up with them and/or the need for any referrals to a consulting specialist. The emergency department will also refer you to a specialist when appropriate. This referral assures that you have the opportunity for follow-up care with a specialist. All of these measure are taken in an effort to provide you with optimal care, which includes your follow-up. Under all circumstances we always encourage you to contact your private physician who remains a resource for coordinating your care. When calling for follow-up care, please make the office aware that this follow-up is from your recent emergency room visit. If for any reason you are refused follow-up, please contact the [facility] Emergency Department at and asked to speak to the emergency department charge nurse. Sepsis Event Note (ED) - Evaluation Sepsis Screening Result: No Definite Risk - Focused Exam Vital Signs: Vital Signs Temp Pulse Resp BP Pulse Ox 06/07/20 10:46 98 F 64 18 122/63 99 - My Orders Last 24 Hours: My Active Orders 06/07/20 11:04 Sodium Chloride 0.9% [Saline Flush] 10 ml FLUSH ASDIRECTED PRN Sodium Chloride 0.9% [Saline Flush] 2.5 ml FLUSH ASDIRECTED PRN 06/07/20 11:05 Saline Lock Insert [OM.PC] Stat - Assessment/Plan Last 24 Hours: My Active Orders 06/07/20 11:04 Sodium Chloride 0.9% [Saline Flush] 10 ml FLUSH ASDIRECTED PRN Sodium Chloride 0.9% [Saline Flush] 2.5 ml FLUSH ASDIRECTED PRN 06/07/20 11:05 Saline Lock Insert [OM.PC] Stat Assessment:: 34-year-old female presenting with approximately 24 hours of chest pain is described above associated with 2 weeks of productive cough and malaise. Bronchitis is a consideration but lungs are clear on exam pneumonia certainly possible. Covid possible but given the recent negative Covid test this is felt unlikely. Given the chest pain PE needs to be considered however patient is low risk and D-dimer will be sent. ACS felt very unlikely as patient is quite low risk for this her heart score is low. Single troponin should be sufficient. EKG is without acute ischemia. No findings to suggest aortic dissection or pericarditis. CBC, CMP, troponin, D-dimer, chest x-ray all pending. Final treatment and disposition pending these results. 1240: Labs notable only for mildly elevated D-dimer otherwise unremarkable. Chest x-ray normal. CT pulmonary angiography is pending. 1352: Patient's CTA is without signs of pneumonia and is without signs of pulmonary embolism. Small thyroid nodule. Given these findings and that we can exclude pulmonary embolism I think we also can exclude Covid given the negative CT. I think it is most likely that she is developing some mild bronchitis with all of the drainage from the nasal passages irritating her lungs. We will trial an albuterol inhaler strict return precautions discussed and understood patient will try Mucinex D as well and follow-up with her primary care provider.
[2020-06-07 11:51] LABS: BLOOD UREA NITROGEN,BUN 13 mg/dL (7.0-18.0); CARBON DIOXIDE,CO2 29.7 mmol/L (21.0-32.0); CHLORIDE,CL 104 mmol/L (98-107); GLUCOSE RANDOM 86 mg/dL (74-106); POTASSIUM,K 3.5 mmol/L (3.5-5.1); SODIUM,NA 140 mmol/L (136-145)
--- NOTE | 2020-06-07 12:25 | CR ---
INDICATION: Cough with chest pain. TECHNIQUE: Chest 1 view. COMPARISON: None FINDINGS: Cardiovascular and mediastinum: Heart size and vasculature are normal in caliber and appearance. Mediastinum is within normal limits. Lungs and pleural space: Lungs are clear. No sign of infiltrate or mass. No sign of pleural effusion. No pneumothorax. Bones and soft tissues: No significant findings. IMPRESSION: Unremarkable chest. Dictated by Michael Lawrence MD @ Jun 07 2020 12:20PM Signed by Dr. Michael Lawrence @ Jun 07 2020 12:23PM
[2020-06-07] MEDS ORDERED: Iopamidol 755 MG/ML 500 ML Multipack Bottle IVPUSH ONE (13:12)
--- NOTE | 2020-06-07 13:43 | CT ---
Clinical INDICATION: Chest pain and dyspnea. Elevated D-dimer. TECHNIQUE: Axial intravenously infused CT cuts were performed through the chest during the peak phase of pulmonary arterial contrast opacification. 80 mL of Isovue-370 has been injected via the right antecubital vein. FINDINGS: There are no pulmonary emboli. There is no aortic aneurysm or dissection. There are no pulmonary nodules or masses. There are no enlarged hilar, mediastinal or axillary lymph nodes. There is a 2.0 cm right thyroid nodule. The visualized liver, spleen, pancreas, adrenals and kidneys appear normal. No lytic or blastic skeletal lesions are identified. IMPRESSION: 1. Negative for pulmonary emboli. 2. Right thyroid nodule. Consider elective thyroid sonography for further characterization. Please note that all CT scans at this facility use dose modulation, iterative reconstruction, and/or weight-based dosing when appropriate to reduce radiation dose to as low as reasonably achievable. Dictated by Bandar Christine MD @ Jun 07 2020 1:30PM Signed by Dr. Bandar Christine @ Jun 07 2020 1:42PM
[2020-06-07 13:55] VITALS: BP 124/78; PULSE 55
== END 2020-06-07 14:04 | disposition home or self-care (01) ==
LOC: MW.ED 10:41
DX: J40 Bronchitis, not specified as acute or chronic (principal); E03.9 Hypothyroidism, unspecified; Z79.899 Other long term (current) drug therapy
CPT/HCPCS: 36415; 71046; 71275; 80053; 81025; 84484; 85025; 85379; 93005; 99285; Q9967; 93010; 99283

== ENCOUNTER 2020-12-03 08:01 | Day surgery (SDC) | payer BC ==
[~2020-12-03 08:01] MED LIST: Diazepam 5 MG Tab PO ONE
[2020-12-03] MEDS ORDERED: Sodium Chloride 0.9% 2.5 ML Syringe FLUSH PRN (08:35)
[2020-12-03] MEDS ORDERED: Sodium Chloride 0.9% 10 ML Syringe FLUSH PRN (08:35)
--- NOTE | 2020-12-03 08:50 | EDM.PDOC ---
ED HPI GENERAL MEDICAL PROBLEM - General Chief Complaint: Abdominal Pain Stated Complaint: ABDOMINAL PAIN Time Seen by Provider: 12/03/20 08:09 - History of Present Illness INITIAL COMMENTS - FREE TEXT/NARRATIVE: History of present illness: [] Patient got her Covid vaccine dose #1 Pfizer on 01 December. After that she had some mild abdominal cramping. The cramping is gradually gotten worse over the last 2 days. Its been constant for more than 24 hours and its severe. She has had intermittent nausea but no vomiting. Bowel and bladder habits have not changed and there is no dysuria. She has at times felt like the cramp radiated to her back and down her right thigh. The patient has had similar pain but never so persistent. Prior episodes have been attributed to ruptured ovarian cyst and hemorrhagic ovarian cyst. The patient denies because she has been unable to have time to be sexually active for more than two cycles. She does feel chills at times. She is not lightheaded or feel like she will pass out. Review of systems: As per history of present illness and below otherwise all systems reviewed and negative. Past medical history: As per history of present illness and as reviewed below otherwise noncontributory. Surgical history: As per history of present illness and as reviewed below otherwise noncontributory. Social history: No reported history of drug or alcohol abuse. Family history: As per history of present illness and as reviewed below otherwise noncontributory. Physical exam: Constitutional - well developed, well-nourished and in no acute distress. Patient does not appear toxic HEENT - normocephalic, no evidence of trauma - external nose and mouth normal - no mass in neck and no JVD - mucosae moist EYES - full EOM, PERRL, no icterus - no evidence of inflammation, injection, or drainage Respiratory - no respiratory distress, equal bilateral expansion, lungs clear to auscultation and no abnormal lung sounds Cardiovascular - Regular Rhythm with S1 and S2 appreciated and no murmur, gallop or rub. GI - abdomen soft without distension or organomegaly -hyperactive bowel sounds - no guard or rebound-tender diffusely except the epigastrium. The patient's tenderness is much more pronounced in the right lower quadrant near McBurney's point and then the right suprapubic area Musculoskeletal no gross deformity of long bones or joints - no tenderness, swelling or edema Neurologic - Alert and oriented times four - CN II-XII grossly intact - motor sensory and coordination symmetrically normal Psychiatric - appropriate mood and affect with normal thought content Hematologic - No petechiae or purpura - mucosa appropriate color and sclera not pale - normal nail bed color and refill Integument - no rash or evidence of trauma - normal turgor Diagnostics: [] Therapeutics: [] Impression: [] Plan: [] Definitive disposition and diagnosis as appropriate pending reevaluation and review of above. Lower abd Pain Score (Numeric/FACES): 10 - Related Data Allergies Allergy/AdvReac Type Severity Reaction Status Date / Time No Known Allergies Allergy Verified 12/03/20 08:10 Home Meds: Home Meds Levothyroxine 75 mcg PO ACBREAKFAST 03/07/20 [History] buPROPion HCL [Wellbutrin Xl] 75 mg PO DAILY 12/03/20 [History] Past Medical History HEENT 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: None Cardiovascular 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: None Respiratory 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: None Gastrointestinal 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: None Genitourinary 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: None MANAGEMENT INTERNS[employer]IP 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: , Other (See Below) Other MANAGEMENT INTERNS[employer]IP History: tubal reversal Musculoskeletal 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: None Neurological 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: None Psychiatric 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: Anxiety, Depression Other Psychiatric History: post depression 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 Hematologic 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: None Immunologic 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: None Oncologic (Cancer) 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: None Dermatologic 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: None - Infectious Disease History Infectious Disease 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: Chicken Pox - Past Surgical History Head Surgeries/Procedures: Reports: None Female Surgical 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: Section Social & Family History - Family History Family Medical History: No Pertinent Family History - Tobacco Use Tobacco Use Status *Q: Never Tobacco User - Caffeine Use Caffeine Use: Reports: Coffee, Energy Drinks, Soda - Recreational Drug Use Recreational Drug Use: No ED ROS GENERAL - Review of Systems Review Of Systems: Comprehensive ROS is negative, except as noted in HPI. ED EXAM, GENERAL - Physical Exam Exam: See Below Free Text/Narrative:: Physical exam is in the HPI Course - Vital Signs Text/Narrative:: Differential diagnosis includes ectopic , ovarian cyst, ovarian torsion, appendicitis, gastroenteritis, gastrointestinal reaction to Covid vaccination. Plan ultrasound first and patient understands the small risk of a CT scan if necessary. She has not had a CT of her abdomen in the past. 935 patient has red cells in her urine. She says she is on her period now this was a voided urine. 10:46 AM ultrasound and lab appendix essentially unhelpful. The pain is better but when I reexamine the abdomen she is tender exactly at McBurney's point and quite so 1307 hrs. I had done a CT because despite the normal white count and temperature her exam was consistent with appendicitis. Her history is very unusual for that. Unfortunately the CT did not show any dilated appendix but there is periappendiceal stranding. I passed the decision making onto the the patient with the help of the surgeon Dr. Tyler who agreed to see the patient in the emergency department and reviewed the scan. [address] Tyler saw the patient in the emergency department and the patient and Dr. Jimenez decided to have her appendix out today. We put her in same-day surgery. Last Recorded V/S: Last Vital Signs Temp 35.7 C L 12/03/20 12:09 Pulse 54 L 12/03/20 13:04 Resp 16 12/03/20 12:09 BP 117/75 12/03/20 13:04 Pulse Ox 98 12/03/20 13:04 - Orders/Labs/Meds Orders: Active Orders 24 hr Category Date Time Status Admission Status [Patient Status] [ADT] Routine ADT 12/03/20 14:23 Ordered Sodium Chloride 0.9% [Normal Saline] 1,000 ml Med 12/03/20 14:15 Active IV ASDIRECTED Sodium Chloride 0.9% [Saline Flush] Med 12/03/20 08:35 Active 10 ml FLUSH ASDIRECTED PRN Sodium Chloride 0.9% [Saline Flush] Med 12/03/20 08:35 Active 2.5 ml FLUSH ASDIRECTED PRN cefOXitin [Mefoxin in Dextrose,Iso-Osm 2 GM/50 ML] 2 gm Med 12/03/20 14:03 Active Premix Bag 1 bag IV ONETIME Saline Lock Insert [OM.PC] Stat Oth 12/03/20 08:35 Ordered Medication Orders Cefoxitin Sodium 2 gm/ Premix 50 mls @ 100 mls/hr IV ONETIME ONE Stop: 12/03/20 14:32 Last Admin: 12/03/20 14:12 Dose: 100 mls/hr Documented by: PAULETTE Sodium Chloride (Normal Saline) 1,000 mls @ 125 mls/hr IV ASDIRECTED FEDE Last Admin: 12/03/20 14:12 Dose: 125 mls/hr Documented by: PAULETTE Sodium Chloride (Sodium Chloride 0.9% 10 Ml Syringe) 10 ml FLUSH ASDIRECTED PRN PRN Reason: Keep Vein Open Last Admin: 12/03/20 09:31 Dose: 10 ml Documented by: PAULETTE Sodium Chloride (Sodium Chloride 0.9% 2.5 Ml Syringe) 2.5 ml FLUSH ASDIRECTED PRN PRN Reason: Keep Vein Open Last Admin: 12/03/20 09:31 Dose: 2.5 ml Documented by: PAULETTE Labs: Laboratory Tests 12/03/20 12/03/20 12/03/20 Range/Units 08:15 08:15 08:15 WBC 7.28 (4.0-11.0) K/uL RBC 4.16 L (4.30-5.90) M/uL Hgb 12.5 (12.0-16.0) g/dL Hct 38.0 (36.0-46.0) % MCV 91.3 (80.0-98.0) fL MCH 30.0 (27.0-32.0) pg MCHC 32.9 (31.0-37.0) g/dL RDW Std Deviation 41.1 (28.0-62.0) fl RDW Coeff of Mahendra 13 (11.0-15.0) % Plt Count 250 (150-400) K/uL MPV 10.90 (7.40-12.00) fL Neut % (Auto) 67.8 (48.0-80.0) % Lymph % (Auto) 17.4 (16.0-40.0) % [place] % (Auto) 12.2 (0.0-15.0) % Eos % (Auto) 2.3 (0.0-7.0) % Baso % (Auto) 0.3 (0.0-1.5) % Neut # (Auto) 4.9 (1.4-5.7) K/uL Lymph # (Auto) 1.3 (0.6-2.4) K/uL [place] # (Auto) 0.9 H (0.0-0.8) K/uL Eos # (Auto) 0.2 (0.0-0.7) K/uL Baso # (Auto) 0.0 (0.0-0.1) K/uL Sodium 139 (136-145) mmol/L Potassium 4.0 (3.5-5.1) mmol/L Chloride 104 (98-107) mmol/L Carbon Dioxide 28.7 (21.0-32.0) mmol/L BUN 9 (7.0-18.0) mg/dL Creatinine 0.8 (0.6-1.0) mg/dL Est Cr Clr Drug Dosing 83.95 mL/min Estimated GFR (MDRD) > 60.0 ml/min Glucose 90 (74-106) mg/dL Calcium 8.9 (8.5-10.1) mg/dL Total Bilirubin 0.5 (0.2-1.0) mg/dL AST 11 L (15-37) IU/L ALT 17 (14-63) IU/L Alkaline Phosphatase 70 (46-116) U/L Total Protein 7.8 (6.4-8.2) g/dL Albumin 3.6 (3.4-5.0) g/dL Globulin 4.2 H (2.6-4.0) g/dL Albumin/Globulin Ratio 0.9 (0.9-1.6) Lipase 84 (73-393) U/L Urine Color RED Urine Appearance CLOUDY Urine pH 7.0 (5.0-8.0) Ur Specific [place] 1.015 (1.001-1.035) Urine Protein 30 H (NEGATIVE) mg/dL Urine Glucose (UA) NEGATIVE (NEGATIVE) mg/dL Urine Ketones TRACE H (NEGATIVE) mg/dL Urine Occult Blood LARGE H (NEGATIVE) Urine Nitrite NEGATIVE (NEGATIVE) Urine Bilirubin NEGATIVE (NEGATIVE) Urine Urobilinogen 2.0 H (<2.0) EU/dL Ur Leukocyte Esterase TRACE H (NEGATIVE) Urine RBC TOO NUMEROUS TO CT H (0-2/HPF) Urine WBC 1-3 (0-5/HPF) Ur Epithelial Cells RARE (NONE-FEW) Urine Bacteria FEW (NEGATIVE) Urine Mucus LIGHT (NONE-MOD) Urine HCG, Qual (NEGATIVE) SARS-CoV-2 RNA (ZAIN) (NEGATIVE) 12/03/20 12/03/20 Range/Units 08:15 13:00 WBC (4.0-11.0) K/uL RBC (4.30-5.90) M/uL Hgb (12.0-16.0) g/dL Hct (36.0-46.0) % MCV (80.0-98.0) fL MCH (27.0-32.0) pg MCHC (31.0-37.0) g/dL RDW Std Deviation (28.0-62.0) fl RDW Coeff of Mahendra (11.0-15.0) % Plt Count (150-400) K/uL MPV (7.40-12.00) fL Neut % (Auto) (48.0-80.0) % Lymph % (Auto) (16.0-40.0) % [place] % (Auto) (0.0-15.0) % Eos % (Auto) (0.0-7.0) % Baso % (Auto) (0.0-1.5) % Neut # (Auto) (1.4-5.7) K/uL Lymph # (Auto) (0.6-2.4) K/uL [place] # (Auto) (0.0-0.8) K/uL Eos # (Auto) (0.0-0.7) K/uL Baso # (Auto) (0.0-0.1) K/uL Sodium (136-145) mmol/L Potassium (3.5-5.1) mmol/L Chloride (98-107) mmol/L Carbon Dioxide (21.0-32.0) mmol/L BUN (7.0-18.0) mg/dL Creatinine (0.6-1.0) mg/dL Est Cr Clr Drug Dosing mL/min Estimated GFR (MDRD) ml/min Glucose (74-106) mg/dL Calcium (8.5-10.1) mg/dL Total Bilirubin (0.2-1.0) mg/dL AST (15-37) IU/L ALT (14-63) IU/L Alkaline Phosphatase (46-116) U/L Total Protein (6.4-8.2) g/dL Albumin (3.4-5.0) g/dL Globulin (2.6-4.0) g/dL Albumin/Globulin Ratio (0.9-1.6) Lipase (73-393) U/L Urine Color Urine Appearance Urine pH (5.0-8.0) Ur Specific [place] (1.001-1.035) Urine Protein (NEGATIVE) mg/dL Urine Glucose (UA) (NEGATIVE) mg/dL Urine Ketones (NEGATIVE) mg/dL Urine Occult Blood (NEGATIVE) Urine Nitrite (NEGATIVE) Urine Bilirubin (NEGATIVE) Urine Urobilinogen (<2.0) EU/dL Ur Leukocyte Esterase (NEGATIVE) Urine RBC (0-2/HPF) Urine WBC (0-5/HPF) Ur Epithelial Cells (NONE-FEW) Urine Bacteria (NEGATIVE) Urine Mucus (NONE-MOD) Urine HCG, Qual NEGATIVE (NEGATIVE) SARS-CoV-2 RNA (ZAIN) NEGATIVE (NEGATIVE) Meds: Medications Generic Name Dose Route Start Last Admin Trade Name Jagdish PRN Reason Stop Dose Admin Cefoxitin Sodium 2 gm/ Premix 50 mls @ 100 mls/hr 12/03/20 14:03 12/03/20 14:12 IV 12/03/20 14:32 100 mls/hr ONETIME ONE Administration Sodium Chloride 1,000 mls @ 125 mls/hr 12/03/20 14:15 12/03/20 14:12 Normal Saline IV 125 mls/hr ASDIRECTED FEDE Administration Sodium Chloride 10 ml 12/03/20 08:35 12/03/20 09:31 Sodium Chloride 0.9% 10 Ml Syringe FLUSH 10 ml ASDIRECTED PRN Administration Keep Vein Open Sodium Chloride 2.5 ml 12/03/20 08:35 12/03/20 09:31 Sodium Chloride 0.9% 2.5 Ml Syringe FLUSH 2.5 ml ASDIRECTED PRN Administration Keep Vein Open Discontinued Medications Generic Name Dose Route Start Last Admin Trade Name Ajq PRN Reason Stop Dose Admin Dexamethasone Confirm 12/03/20 14:17 Dexamethasone 4 Mg/Ml 5 Ml Mdv Administered 12/03/20 14:18 Dose 20 mg .ROUTE .STK-MED ONE Fentanyl Confirm 12/03/20 14:16 Fentanyl 250 Mcg/5 Ml Sdv Administered 12/03/20 14:17 Dose 250 mcg .ROUTE .STK-MED ONE Iopamidol 100 ml 12/03/20 11:42 12/03/20 11:43 Iopamidol 755 Mg/Ml 500 Ml Multipack Bottle IVPUSH 12/03/20 11:43 100 ml ONETIME ONE Administration Midazolam HCl Confirm 12/03/20 14:15 Midazolam 1 Mg/Ml 2 Ml Sdv Administered 12/03/20 14:16 Dose 2 mg .ROUTE .STK-MED ONE Ondansetron HCl Confirm 12/03/20 14:17 Ondansetron 4 Mg/2 Ml Sdv Administered 12/03/20 14:18 Dose 4 mg .ROUTE .STK-MED ONE Propofol Confirm 12/03/20 14:15 Propofol 200 Mg/20 Ml Sdv Administered 12/03/20 14:16 Dose 200 mg .ROUTE .STK-MED ONE Rocuronium [place] Confirm 12/03/20 14:17 Rocuronium [place] 50 Mg/5 Ml Syringe Administered 12/03/20 14:18 Dose 50 mg .ROUTE .STK-MED ONE Succinylcholine Chloride Confirm 12/03/20 14:17 Succinylcholine Chloride 200 Mg/10 Ml Syr Administered 12/03/20 14:18 Dose 200 mg .ROUTE .STK-MED ONE Departure - Departure Time of Disposition: 14:25 Disposition: Refer to Observation Condition: Good Clinical Impression: Appendicitis - Discharge Information Sepsis Event Note (ED) - Evaluation Sepsis Screening Result: No Definite Risk - Focused Exam Vital Signs: Vital Signs Temp Pulse Resp BP Pulse Ox 12/03/20 13:04 54 L 117/75 98 12/03/20 12:09 35.7 C L 60 16 119/40 L 99 12/03/20 10:05 60 104/66 100 12/03/20 09:31 51 L 16 122/41 L 100 12/03/20 08:12 35.6 C L 71 16 114/80 100 - My Orders Last 24 Hours: My Active Orders 12/03/20 08:35 Sodium Chloride 0.9% [Saline Flush] 10 ml FLUSH ASDIRECTED PRN Sodium Chloride 0.9% [Saline Flush] 2.5 ml FLUSH ASDIRECTED PRN Saline Lock Insert [OM.PC] Stat 12/03/20 14:23 Admission Status [Patient Status] [ADT] Routine - Assessment/Plan Last 24 Hours: My Active Orders 12/03/20 08:35 Sodium Chloride 0.9% [Saline Flush] 10 ml FLUSH ASDIRECTED PRN Sodium Chloride 0.9% [Saline Flush] 2.5 ml FLUSH ASDIRECTED PRN Saline Lock Insert [OM.PC] Stat 12/03/20 14:23 Admission Status [Patient Status] [ADT] Routine
[2020-12-03 09:05] LABS: BLOOD UREA NITROGEN,BUN 9 mg/dL (7.0-18.0); CARBON DIOXIDE,CO2 28.7 mmol/L (21.0-32.0); CHLORIDE,CL 104 mmol/L (98-107); GLUCOSE RANDOM 90 mg/dL (74-106); LIPASE 84 U/L (73-393); SODIUM,NA 139 mmol/L (136-145)
--- NOTE | 2020-12-03 10:14 | US ---
INDICATION: Pelvic pain. TECHNIQUE: Ultrasound pelvis transabdominal and transvaginal for better assessment or to better visualize the endometrium. Real-time sonographic images with spectral and color Doppler imaging of the ovaries were obtained. COMPARISON: None. FINDINGS: Uterus: 7 x 7 x 5 cm. Myometrium is heterogeneous. No masses. Endometrium: Transvaginal imaging was performed to better evaluate the endometrium. Endometrial thickness measures 8 mm. No sign of endometrial mass or fluid. Right ovary measures 3 x 2 x 2 cm and left ovary measures 3 x 2 x 1 cm. No ovarian or adnexal masses. Normal arterial and venous blood flow is demonstrated in both ovaries. Cul-de-sac: No significant free fluid. IMPRESSION: Unremarkable pelvic ultrasound. No acute or specific finding to explain pain. No sign of ovarian torsion. Dictated by Dillon Valencia MD @ 12/03/2020 10:13:11 AM (Electronically Signed)
[2020-12-03] MEDS ORDERED: Iopamidol 755 MG/ML 500 ML Multipack Bottle IVPUSH ONE (11:42)
--- NOTE | 2020-12-03 12:44 | CT ---
INDICATION: Lower abdominal pain for 1 week[address] TECHNIQUE: CT abdomen and pelvis acquired with 100 cc Omnipaque IV contrast. COMPARISON: None. FINDINGS: Lower chest: Unremarkable. Liver: Unremarkable. Normal in size and attenuation. No suspicious masses. Gallbladder and bile ducts: Unremarkable. No stones or inflammation. No biliary dilatation. Pancreas: Unremarkable. No mass or inflammation. Spleen: Unremarkable. Normal in size. No masses. Adrenal glands: Unremarkable. No nodules. Kidneys: Unremarkable. No suspicious masses, stones, or hydronephrosis. GI tract: Unremarkable. Normal in caliber. No sign of mass or inflammation. The appendix is normal in caliber, however there is mild fat stranding in the area around the appendix as demonstrated on the axial series 201, image 109. Vasculature: Unremarkable. Mesenteric arteries are patent. Lymph nodes: No lymphadenopathy. Omentum/Peritoneum/Abdominal Wall: Unremarkable. No sign of mass or infiltration. No free air or significant free fluid. Pelvis: Unremarkable. Bones: Unremarkable for age. IMPRESSION: Mild fat stranding in the area of the appendix which is otherwise normal in caliber and appearance. Early appendicitis is not definite but possible. Remainder of the exam is unremarkable. No other finding to explain abdominal pain. Please note that all CT scans at this facility use dose modulation, iterative reconstruction, and/or weight-based dosing when appropriate to reduce radiation dose to as low as reasonably achievable. Dictated by Dillon Valencia MD @ 12/03/2020 12:43:55 PM (Electronically Signed)
[2020-12-03] MEDS ORDERED: cefOXitin 2 GM in Premix Bag 1 BAG IV ONE (14:03)
[2020-12-03] MEDS ORDERED: Propofol 200 MG/20 ML SDV ONE (14:15)
[2020-12-03] MEDS ORDERED: Sodium Chloride 0.9% 1,000 ML IV SCH (14:15)
[2020-12-03] MEDS ORDERED: Midazolam 1 MG/ML 2 ML SDV ONE (14:15)
[2020-12-03] MEDS ORDERED: fentaNYL 250 MCG/5 ML SDV ONE (14:16)
[2020-12-03] MEDS ORDERED: Rocuronium Bromide 50 MG/5 ML Syringe ONE (14:17)
[2020-12-03] MEDS ORDERED: Ondansetron 4 MG/2 ML SDV ONE (14:17)
[2020-12-03] MEDS ORDERED: Dexamethasone 4 MG/ML 5 ML MDV ONE (14:17)
--- NOTE | 2020-12-03 14:19 | PCM.SN.2 ---
- Free Text/Narrative Note: pt seen, chart reviewed; possible appendicitis c/w exam and imaging; pt agreed for appendectomy, rb dw pt re bleeding/infection/damage to nearby organs; proceed w surgery; ivf/consent/2 g iv mefoxin, [id number] Time Documentation
[2020-12-03] MEDS ORDERED: Bupivacaine 25%/EPINEPHrine/PF 60 ML ONE (14:36)
[2020-12-03] MEDS ORDERED: Octyl 2-Cyanoacrylate 1 Tube ONE (14:37)
[2020-12-03] MEDS ORDERED: ePHEDrine 50 MG/ML SDV ONE (15:03)
--- NOTE | 2020-12-03 15:17 | PCM.PREANE ---
Preanesthetic Assessment - Anesthesia/Transfusion/Family Hx Anesthesia History: Prior Anesthesia Without Reaction Family History of Anesthesia Reaction: No Transfusion History: No Prior Transfusion(s) - Review of Systems General: No Symptoms Pulmonary: No Symptoms Cardiovascular: No Symptoms Gastrointestinal: No Symptoms Neurological: No Symptoms Other: Reports: None - Physical Assessment NPO Status Date: 12/02/20 Vital Signs: Last Vital Signs Temp 35.7 C L 12/03/20 12:09 Pulse 54 L 12/03/20 13:04 Resp 16 12/03/20 12:09 BP 117/75 12/03/20 13:04 Pulse Ox 98 12/03/20 13:04 Height: 1.63 m Weight: 63.503 kg ASA Class: 2E Mental Status: Alert & Oriented x3 Airway Class: Mallampati = 1 Dentition: Reports: Normal Dentition Thyro-Mental Finger Breadths: 3 ROM/Head Extension: Full Lungs: Clear to Auscultation Cardiovascular: Regular Rate - Lab Values: Laboratory Last Values WBC 7.28 K/uL (4.0-11.0) 12/03/20 08:15 RBC 4.16 M/uL (4.30-5.90) L 12/03/20 08:15 Hgb 12.5 g/dL (12.0-16.0) 12/03/20 08:15 Hct 38.0 % (36.0-46.0) 12/03/20 08:15 MCV 91.3 fL (80.0-98.0) 12/03/20 08:15 MCH 30.0 pg (27.0-32.0) 12/03/20 08:15 MCHC 32.9 g/dL (31.0-37.0) 12/03/20 08:15 RDW Std Deviation 41.1 fl (28.0-62.0) 12/03/20 08:15 RDW Coeff of Mahendra 13 % (11.0-15.0) 12/03/20 08:15 Plt Count 250 K/uL (150-400) 12/03/20 08:15 MPV 10.90 fL (7.40-12.00) 12/03/20 08:15 Neut % (Auto) 67.8 % (48.0-80.0) 12/03/20 08:15 Lymph % (Auto) 17.4 % (16.0-40.0) 12/03/20 08:15 [place] % (Auto) 12.2 % (0.0-15.0) 12/03/20 08:15 Eos % (Auto) 2.3 % (0.0-7.0) 12/03/20 08:15 Baso % (Auto) 0.3 % (0.0-1.5) 12/03/20 08:15 Neut # (Auto) 4.9 K/uL (1.4-5.7) 12/03/20 08:15 Lymph # (Auto) 1.3 K/uL (0.6-2.4) 12/03/20 08:15 [place] # (Auto) 0.9 K/uL (0.0-0.8) H 12/03/20 08:15 Eos # (Auto) 0.2 K/uL (0.0-0.7) 12/03/20 08:15 Baso # (Auto) 0.0 K/uL (0.0-0.1) 12/03/20 08:15 Sodium 139 mmol/L (136-145) 12/03/20 08:15 Potassium 4.0 mmol/L (3.5-5.1) 12/03/20 08:15 Chloride 104 mmol/L (98-107) 12/03/20 08:15 Carbon Dioxide 28.7 mmol/L (21.0-32.0) 12/03/20 08:15 BUN 9 mg/dL (7.0-18.0) 12/03/20 08:15 Creatinine 0.8 mg/dL (0.6-1.0) 12/03/20 08:15 Est Cr Clr Drug Dosing 83.95 mL/min 12/03/20 08:15 Estimated GFR (MDRD) > 60.0 ml/min 12/03/20 08:15 Glucose 90 mg/dL (74-106) 12/03/20 08:15 Calcium 8.9 mg/dL (8.5-10.1) 12/03/20 08:15 Total Bilirubin 0.5 mg/dL (0.2-1.0) 12/03/20 08:15 AST 11 IU/L (15-37) L 12/03/20 08:15 ALT 17 IU/L (14-63) 12/03/20 08:15 Alkaline Phosphatase 70 U/L (46-116) 12/03/20 08:15 Total Protein 7.8 g/dL (6.4-8.2) 12/03/20 08:15 Albumin 3.6 g/dL (3.4-5.0) 12/03/20 08:15 Globulin 4.2 g/dL (2.6-4.0) H 12/03/20 08:15 Albumin/Globulin Ratio 0.9 (0.9-1.6) 12/03/20 08:15 Lipase 84 U/L (73-393) 12/03/20 08:15 Urine Color RED 12/03/20 08:15 Urine Appearance CLOUDY 12/03/20 08:15 Urine pH 7.0 (5.0-8.0) 12/03/20 08:15 Ur Specific [place] 1.015 (1.001-1.035) 12/03/20 08:15 Urine Protein 30 mg/dL (NEGATIVE) H 12/03/20 08:15 Urine Glucose (UA) NEGATIVE mg/dL (NEGATIVE) 12/03/20 08:15 Urine Ketones TRACE mg/dL (NEGATIVE) H 12/03/20 08:15 Urine Occult Blood LARGE (NEGATIVE) H 12/03/20 08:15 Urine Nitrite NEGATIVE (NEGATIVE) 12/03/20 08:15 Urine Bilirubin NEGATIVE (NEGATIVE) 12/03/20 08:15 Urine Urobilinogen 2.0 EU/dL (<2.0) H 12/03/20 08:15 Ur Leukocyte Esterase TRACE (NEGATIVE) H 12/03/20 08:15 Urine RBC TOO NUMEROUS TO CT (0-2/HPF) H 12/03/20 08:15 Urine WBC 1-3 (0-5/HPF) 12/03/20 08:15 Ur Epithelial Cells RARE (NONE-FEW) 12/03/20 08:15 Urine Bacteria FEW (NEGATIVE) 12/03/20 08:15 Urine Mucus LIGHT (NONE-MOD) 12/03/20 08:15 Urine HCG, Qual NEGATIVE (NEGATIVE) 12/03/20 08:15 SARS-CoV-2 RNA (ZAIN) NEGATIVE (NEGATIVE) 12/03/20 13:00 - Allergies Allergies/Adverse Reactions: Allergies Allergy/AdvReac Type Severity Reaction Status Date / Time No Known Allergies Allergy Verified 12/03/20 08:10 - Acknowledgements Anesthesia Type Planned: General Anesthesia (ETT) Pt an Appropriate Candidate for the Planned Anesthesia: Yes Alternatives and Risks of Anesthesia Discussed w Pt/Guardian: Yes Pt/Guardian Understands and Agrees with Anesthesia Plan: Yes Additional Comments: Denies any medical problems. 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 Below) Other OB/BYN History: tubal reversal Musculoskeletal 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: None Neurological 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: None Psychiatric 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: Anxiety, Depression Other Psychiatric History: post depression Hematologic 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: None Immunologic 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: None Oncologic (Cancer) 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: None Dermatologic 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: None - Infectious Disease History Infectious Disease 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: Chicken Pox - Past Surgical History Head Surgeries/Procedures: Reports: None Female Surgical 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: Section - SUBSTANCE USE Tobacco Use Status *Q: Never Tobacco User Recreational Drug Use History: No - HOME MEDS Home Medications: Home Meds Levothyroxine 75 mcg PO ACBREAKFAST 03/07/20 [History] buPROPion HCL [Wellbutrin Xl] 75 mg PO DAILY 12/03/20 [History] - CURRENT (IN HOUSE) MEDS Current Meds: Current Medications Sodium Chloride (Normal Saline) 1,000 mls @ 125 mls/hr IV ASDIRECTED FEDE Last Admin: 12/03/20 14:12 Dose: 125 mls/hr Documented by: Sodium Chloride (Sodium Chloride 0.9% 10 Ml Syringe) 10 ml FLUSH ASDIRECTED PRN PRN Reason: Keep Vein Open Last Admin: 12/03/20 09:31 Dose: 10 ml Documented by: Sodium Chloride (Sodium Chloride 0.9% 2.5 Ml Syringe) 2.5 ml FLUSH ASDIRECTED PRN PRN Reason: Keep Vein Open Last Admin: 12/03/20 09:31 Dose: 2.5 ml Documented by: Discontinued Medications Dexamethasone (Dexamethasone 4 Mg/Ml 5 Ml Mdv) Confirm Administered Dose 20 mg .ROUTE .STK-MED ONE Stop: 12/03/20 14:18 Ephedrine Sulfate (Ephedrine 50 Mg/Ml Sdv) Confirm Administered Dose 50 mg .ROUTE .STK-MED ONE Stop: 12/03/20 15:04 Fentanyl (Fentanyl 250 Mcg/5 Ml Sdv) Confirm Administered Dose 250 mcg .ROUTE .K-MED ONE Stop: 12/03/20 14:17 Cefoxitin Sodium 2 gm/ Premix 50 mls @ 100 mls/hr IV ONETIME ONE Stop: 12/03/20 14:32 Last Admin: 12/03/20 14:12 Dose: 100 mls/hr Documented by: Bupivacaine HCl/Epinephrine Bitart (Sensorc Mpf 0.25%-Epi 1:[id number]) Confirm Administered Dose 60 mls @ as directed .ROUTE .[facility]-MED ONE Stop: 12/03/20 14:37 Acetaminophen (Ofirmev 1000 Mg/100 Ml) Confirm Administered Dose 100 mls @ as directed .ROUTE .[facility]-MED ONE Stop: 12/03/20 14:47 Iopamidol (Iopamidol 755 Mg/Ml 500 Ml Multipack Bottle) 100 ml IVPUSH ONETIME ONE Stop: 12/03/20 11:43 Last Admin: 12/03/20 11:43 Dose: 100 ml Documented by: Midazolam HCl (Midazolam 1 Mg/Ml 2 Ml Sdv) Confirm Administered Dose 2 mg .ROUTE .[facility]-MED ONE Stop: 12/03/20 14:16 Octyl Cyanoacrylate (Octyl 2-Cyanoacrylate 1 Tube) Confirm Administered Dose 1 applic .ROUTE .[facility]-MED ONE Stop: 12/03/20 14:38 Ondansetron HCl (Ondansetron 4 Mg/2 Ml Sdv) Confirm Administered Dose 4 mg .ROUTE .ST-MED ONE Stop: 12/03/20 14:18 Propofol (Propofol 200 Mg/20 Ml Sdv) Confirm Administered Dose 200 mg .ROUTE .STK-MED ONE Stop: 12/03/20 14:16 Rocuronium Sawyer (Rocuronium Sawyer 50 Mg/5 Ml Syringe) Confirm Administered Dose 50 mg .ROUTE .ST-MED ONE Stop: 12/03/20 14:18 Succinylcholine Chloride (Succinylcholine Chloride 200 Mg/10 Ml Syr) Confirm Administered Dose 200 mg .ROUTE .STK-MED ONE Stop: 12/03/20 14:18
[2020-12-03] MEDS ORDERED: Sugammadex Sodium 200 MG/2 ML VIAL ONE ×2 (15:18→15:40)
--- NOTE | 2020-12-03 16:12 | PCM.OPNOTE ---
- General Post-Op/Procedure Note Date of Surgery/Procedure: 12/03/20 Operative Procedure(s): lap appendectomy and peritoneal deposit biopsy Findings: appendix was dilated and hyperemic, indurated, and hardened cw appendicitis, gross perf not observed; [id number] Pre Op Diagnosis: appendicitis Post-Op Diagnosis: Same Anesthesia Technique: General ET Tube Primary Surgeon: Joe Tyler Pathology: appendix and peritoneal biopsy Complications: None Condition: Stable
[2020-12-03] MEDS ORDERED: Morphine 4 MG/ML Syringe IVPUSH PRN (16:16)
--- NOTE | 2020-12-03 16:53 | PCM.POSTAN ---
POST ANESTHESIA ASSESSMENT - MENTAL STATUS Mental Status: Alert, Oriented - VITAL SIGNS Vital Signs: Last Vital Signs Temp 36.8 C 12/03/20 16:22 Pulse 56 L 12/03/20 16:43 Resp 10 L 12/03/20 16:43 BP 124/68 12/03/20 16:43 Pulse Ox 100 12/03/20 16:43 - RESPIRATORY Respiratory Status: Respiratory Rate WNL, Airway Patent, O2 Saturation Stable - CARDIOVASCULAR CV Status: Pulse Rate WNL, Blood Pressure Stable - GASTROINTESTINAL GI Status: No Symptoms - POST OP HYDRATION Hydration Status: Adequate & Stable
[2020-12-03] MEDS: Acetaminophen/oxyCODONE 325-5 MG Tab PO PRN ×2 (17:26→23:50)
[2020-12-03] MEDS: Lactated Ringers 1,000 ML IV SCH (17:27)
--- NOTE | 2020-12-03 17:48 | PCM48HPAN ---
Post Anesthesia Note - EVALUATION WITHIN 48HRS OF ANESTHETIC Vital Signs in Normal Range: Yes Patient Participated in Evaluation: Yes Respiratory Function Stable: Yes Airway Patent: Yes Cardiovascular Function Stable: Yes Hydration Status Stable: Yes Pain Control Satisfactory: No (Patient just took a Percocet) Nausea and Vomiting Control Satisfactory: Yes Mental Status Recovered: Yes Vital Signs: Last Vital Signs Temp 36.8 C 12/03/20 16:22 Pulse 65 12/03/20 16:58 Resp 15 12/03/20 16:58 BP 118/66 12/03/20 16:58 Pulse Ox 99 12/03/20 16:58
--- NOTE | 2020-12-03 21:07 | HP ---
DATE OF : 1985 PRIMARY CARE PHYSICIAN: BRIANNA MEEKS MD Admitting History and Physical and ER Consult Consult from the ER doctor, Dr. Lam. CONSULTING QUESTION: Appendicitis. HISTORY OF PRESENT ILLNESS: The patient is a 35-year-old lady, complaining of 2-1/2-day history of gradual onset of periumbilical pain, subsequently migrated to the right lower quadrant. The patient self-medicated with 800 mg of Motrin four times and does not seem to take care of the pain and also nausea, seeking help in the emergency room. CAT scan shows inflammatory change around the appendix and read the appendix was normal in caliber, but cannot rule out early appendicitis. Currently, the patient's pain is still hurting, but not as bad and also complaining nauseated. PAST MEDICAL HISTORY: Significant for no diabetes, [place], CVA, hypertension. PAST SURGICAL HISTORY: x3 and tubal ligation and tubal reversal. ALLERGIES: Please refer to nursing for details. MEDICATIONS: Please refer to nursing for details. SOCIAL HISTORY: Denied tobacco, alcohol abuse. PHYSICAL EXAMINATION: GENERAL: A very pleasant lady, in no acute distress. HEENT: Normocephalic, atraumatic. Sclerae anicteric. LUNGS: Clear to auscultation. HEART: Regular rate and rhythm. ABDOMEN: Soft, nondistended. No pulsating tender midline abdominal structure. Well-healed Pfannenstiel scar. No hernia appreciated. Exquisite tenderness at the right lower quadrant and left lower quadrant. No rebound tenderness. Have the patient jumping up and down, the patient complaining of pain very bad. CAT scan as alluded above and white count of 7.0. IMPRESSION AND PLAN: Right lower quadrant pain and with inflammatory change around the appendix and has been going on for about 2 days. The patient has abdominal pain for 2-1/2 days and CAT scan shows inflammatory change and the patient has pain when jumping up and down as well as on examination. Despite the fact that she has been taking 2400 Motrin, so the examination may be not very meaningful. With the situation, the patient would benefit to have the appendix removed and surgery intervention or if the patient so chooses, the patient can be observed in the hospital or observed in the home and report to my office and with three options, the patient would like to have surgery to take care of it. Long discussion with the patient regarding her case is not a classic appendicitis case and there are chances now she may have a normal appendix removed. In situation like that, whatever that seems to cause her pain, either some other source or the etiology, and to be the source of her pain will remain behind. She clearly heard that and she thought for a while and she agreed to that. I also related the patient that the surgery will take care of situation if it is appendicitis and the risks involved will be bleeding, infection, and damage to nearby organs. The patient concurred to proceed with surgery. We will get a consent and start IV fluids and put her on Mefoxin x2 g and surgery as planned. As always, thank you for the kind referral. XAVIER OSBORN /[id number]
[2020-12-03] MEDS: Ondansetron 4 MG/2 ML SDV IVPUSH PRN (21:57)
--- NOTE | 2020-12-03 23:00 | OR ---
SURGEON: Joe Tyler MD DATE OF PROCEDURE: 12/03/2020 PREOPERATIVE DIAGNOSIS: Acute appendicitis. POSTOPERATIVE DIAGNOSIS: Acute appendicitis. PROCEDURE PERFORMED: Laparoscopic appendectomy and biopsy of peritoneal deposit. PRIMARY SURGEON: Joe Tyler MD COMPLICATION: None. FINDINGS: The appendix apparently looked manish white, but was hyperemic and also very hard and hardened like rock. During the surgery, it was noted several cystic structure deposit in the abdominal wall, several of them, and was able to biopsy one. DESCRIPTION OF PROCEDURE: The patient was taken to the operating room and placed in the supine position. Following induction of general endotracheal anesthesia, the patient's abdomen was prepped and draped in the sterile fashion. A time-out has been called. The patient was identified. The procedure was identified. The antibiotics were identified. The procedure then proceeded. The abdomen was prepped and draped in a standard fashion. After assessment of appropriate landmarks, a 12 millimeter trocar was inserted supraumbilically using Optiview and pneumoperitoneum was then achieved. This was followed with placement of 5 millimeter port in the right upper quadrant and another 5 millimeter port infraumbilically. The camera was inserted supraumbilical site and two laparoscopic Aureliano retractors were then inserted through the other two sites. Following the cecum, the appendix was located. The appendix was then lifted up, and using a GI stapler the appendix was amputated at the base. And using the GI stapler, the mesoappendix was then amputated. The appendix was retrieved by an endoscopic bag and sent for pathologist. This was then followed by re-insertion of the camera to examine the staple line, and hemostasis. The trocars were then removed. The umbilical site was closed with 2-0 Vicryl deep stitch and 4 -0 Vicryl and Dermabond; the other 2 5 mm port sites were closed with 4-0 Vicryl and Dermabond. The patient was then awakened, extubated, and transferred to the recovery room in hemodynamically stable condition. Prior to closing, sponge count and instrument count was correct. At the conclusion of surgery. Skin staple was used to approximate the port site followed with appropriate dressing. The patient tolerated the procedure well. There were no intraoperative complications. Dr. Tyler was present throughout the whole procedure. As always, thank you for the kind referral. XAVIER / ANURAG /[id number]
[2020-12-04] MEDS ORDERED: Ketorolac 30 MG/ML SDV IVPUSH ONE (00:01)
[2020-12-04] MEDS ORDERED: Ketorolac 30 MG/ML SDV ONE (00:10)
[2020-12-04] MEDS: Lactated Ringers 1,000 ML IV SCH (02:21)
[2020-12-04] MEDS: Ondansetron 4 MG/2 ML SDV IVPUSH PRN (06:16)
[2020-12-04] MEDS: Acetaminophen/oxyCODONE 325-5 MG Tab PO PRN (06:16)
[2020-12-04 11:33] VITALS: BP 105/68; PULSE 66
== END 2020-12-04 12:32 | disposition home or self-care (01) ==
LOC: MW.ED 08:01 → MW.SDS 14:13 → MW.MS 17:08 → MW.SDS 12-04 12:32
PROVIDERS: ATTEND Surgery
DX: K35.80 Unspecified acute appendicitis (principal); K66.8 Other specified disorders of peritoneum; Z01.812 Encounter for preprocedural laboratory examination; Z20.822 Contact with and (suspected) exposure to COVID-19
CPT/HCPCS: 44970; 49321; 74177; 76857; 80053; 81001; 81025; 83690; 85025; 87635; 96374; 99285; A9270; J0131; J0330; J0694; J1100; J1885; J2250; J2405; J2704; J3010; J3490; J7030; J7120; Q9967; 00840; 88304; 88305; U0002

== ENCOUNTER 2021-03-27 00:28 | Emergency (ER) | payer SELFPAY ==
[2021-03-27 00:45] VITALS: PULSE 66
[2021-03-27] MEDS ORDERED: Nitrofurantoin Macrocrystal 50 MG Cap PO ONE (01:07)
[2021-03-27] MEDS ORDERED: Ondansetron 4 MG Tab.DIS PO ONE (01:09)
[2021-03-27 01:53] VITALS: BP 103/44
== END 2021-03-27 01:53 | disposition home or self-care (01) ==
LOC: MW.ED 00:28
DX: N39.0 Urinary tract infection, site not specified (principal); E03.9 Hypothyroidism, unspecified; Z79.899 Other long term (current) drug therapy
CPT/HCPCS: 81001; 87086; 99283; A9270

== ENCOUNTER 2023-03-05 22:33 | Emergency (ER) | payer BC ==
[2023-03-05] MEDS ORDERED: Sodium Chloride 0.9% 10 ML Syringe FLUSH PRN (23:58)
[2023-03-05] MEDS ORDERED: Sodium Chloride 0.9% 2.5 ML Syringe FLUSH PRN (23:58)
[2023-03-06] MEDS ORDERED: Aluminum Hydroxide/Magnesium Hydroxide/Simethicone XS Susp 30 ML Cup PO ONE
[2023-03-06] MEDS ORDERED: Sodium Chloride 0.9% 1,000 ML IV ONE (00:06)
[2023-03-06 00:43] LABS: BASOPHILS ABSOLUTE AUTO 0.07 K/uL (0.00-0.20); BASOPHILS PERCENT AUTO 0.9 % (0.0-1.0); EOSINOPHILS ABSOLUTE AUTO 0.25 K/uL (0.00-0.45); EOSINOPHILS PERCENT AUTO 3.2 % (0.0-6.0); HEMOGLOBIN 12.1 g/dL (12.0-16.0); IMMATURE GRAN ABSOLUTE AUTO 0.02 K/uL (0.00-0.05); IMMATURE GRAN PERCENT AUTO 0.3 % (0.0-0.4); LYMPHOCYTES ABSOLUTE AUTO 2.62 K/uL (1.00-4.80); LYMPHOCYTES PERCENT AUTO 33.9 % (24.0-44.0); MEAN CORPUSCULAR HEMOGLOBIN 30.6 pg (28.0-32.0); MEAN CORPUSCULAR HGB CONC 33.6 g/dL (32.0-36.0); MEAN CORPUSCULAR VOLUME 90.9 fL (83.0-99.0); MEAN PLATELET VOLUME 10.5 fL (9.4-12.3); MONOCYTES ABSOLUTE AUTO 0.67 K/uL (0.00-0.80); MONOCYTES PERCENT AUTO 8.7 % (0.0-8.0); NEUTROPHILS ABSOLUTE AUTO 4.11 K/uL (1.80-7.70); PLATELET COUNT,PLT 246 K/uL (150-400); RED BLOOD CELL COUNT 3.96 M/uL (4.10-5.30); WHITE BLOOD CELL COUNT,WBC 7.74 K/uL (3.9-11.3)
[2023-03-06 01:07] LABS: A/G RATIO 0.9 (0.9-1.6); ALBUMIN 3.7 g/dL (3.4-5.0); BILIRUBIN TOTAL 0.2 mg/dL (0.2-1.0); CALCIUM 8.7 mg/dL (8.5-10.1); CARBON DIOXIDE,CO2 29.1 mmol/L (21.0-32.0); CREATININE 0.9 mg/dL (0.6-1.0); EST CRCL DRUG DOSING (CG) 73.19 mL/min; POTASSIUM,K 3.8 mmol/L (3.5-5.1); PROTEIN TOTAL,TP 7.6 g/dL (6.4-8.2); TSH ULTRASENSITIVE 4.4 uIU/mL (0.36-3.74)
[2023-03-06 01:26] LABS: T4 FREE 1.09 ng/dL (0.76-1.46)
[2023-03-06 01:47] VITALS: BP 127/76; PULSE 60
== END 2023-03-06 01:46 | disposition home or self-care (01) ==
LOC: MW.ED 22:33
DX: R42 Dizziness and giddiness (principal); R07.9 Chest pain, unspecified; R10.9 Unspecified abdominal pain; E03.9 Hypothyroidism, unspecified; Z79.899 Other long term (current) drug therapy
CPT/HCPCS: 36415; 71046; 80053; 83690; 84439; 84443; 84484; 84703; 85025; 93005; 96360; 99285; A9270; J3490; J7030; 93010; 99282

== ENCOUNTER 2023-09-27 08:30 | Emergency (ER) | payer BC ==
[2023-09-27] MEDS: Sodium Chloride 0.9% 1,000 ML IV STA (09:28)
[2023-09-27] MEDS: Ketorolac 30 MG/ML SDV IVPUSH ONE (09:29)
[2023-09-27 09:46] LABS: BASOPHILS ABSOLUTE AUTO 0.03 K/uL (0.00-0.20); BASOPHILS PERCENT AUTO 0.4 % (0.0-1.0); EOSINOPHILS ABSOLUTE AUTO 0.11 K/uL (0.00-0.45); EOSINOPHILS PERCENT AUTO 1.4 % (0.0-6.0); HEMATOCRIT 35.9 % (37.0-47.0); HEMOGLOBIN 12.3 g/dL (12.0-16.0); IMMATURE GRAN ABSOLUTE AUTO 0.02 K/uL (0.00-0.05); IMMATURE GRAN PERCENT AUTO 0.3 % (0.0-0.4); LYMPHOCYTES ABSOLUTE AUTO 1.88 K/uL (1.00-4.80); LYMPHOCYTES PERCENT AUTO 24.1 % (24.0-44.0); MEAN CORPUSCULAR HEMOGLOBIN 30.3 pg (28.0-32.0); MEAN CORPUSCULAR HGB CONC 34.3 g/dL (32.0-36.0); MEAN CORPUSCULAR VOLUME 88.4 fL (83.0-99.0); MEAN PLATELET VOLUME 10.1 fL (9.4-12.3); MONOCYTES ABSOLUTE AUTO 0.74 K/uL (0.00-0.80); MONOCYTES PERCENT AUTO 9.5 % (0.0-8.0); NEUTROPHILS ABSOLUTE AUTO 5.02 K/uL (1.80-7.70); NEUTROPHILS PERCENT AUTO 64.3 % (41.0-71.0); PLATELET COUNT,PLT 210 K/uL (150-400); RED BLOOD CELL COUNT 4.06 M/uL (4.10-5.30)
[2023-09-27 09:57] LABS: BILIRUBIN,URINE NEGATIVE (NEGATIVE); COLOR,URINE YELLOW; GLUCOSE,URINE NEGATIVE (NEGATIVE); KETONES,URINE NEGATIVE (NEGATIVE); LEUKOCYTE ESTERASE,URINE SMALL (NEGATIVE); NITRITE,URINE NEGATIVE (NEGATIVE); OCCULT BLOOD,URINE NEGATIVE (NEGATIVE); PH,URINE 7.5 (5.0-8.0); PROTEIN,URINE NEGATIVE (NEGATIVE); UROBILINOGEN,URINE 0.2 EU/dL (<2.0)
[2023-09-27 10:02] LABS: APPEARANCE,URINE HAZY
[2023-09-27 10:15] LABS: ALBUMIN 3.5 g/dL (3.4-5.0); BILIRUBIN TOTAL 0.6 mg/dL (0.2-1.0); CALCIUM 9.1 mg/dL (8.5-10.1); CREATININE 0.9 mg/dL (0.6-1.0); EST CRCL DRUG DOSING (CG) 72.47 mL/min; POTASSIUM,K 3.4 mmol/L (3.5-5.1)
[2023-09-27 10:27] LABS: BACTERIA,URINE FEW (NEGATIVE); EPITHELIAL CELLS,URINE FEW (NONE-FEW); RBC,URINE 0-2 (0-2/HPF); WBC,URINE 0-2 (0-5/HPF)
[2023-09-27] MEDS: Iopamidol 755 MG/ML 500 ML Multipack Bottle IVPUSH STA (11:20)
[2023-09-27] MEDS: Ondansetron 4 MG/2 ML SDV IVPUSH ONE (11:25)
[2023-09-27] MEDS: Sodium Chloride 0.9% 2.5 ML Syringe FLUSH PRN (11:28)
[2023-09-27] MEDS: Sodium Chloride 0.9% 10 ML Syringe FLUSH PRN (11:28)
[2023-09-27 13:09] VITALS: BP 115/71; PULSE 60
== END 2023-09-27 13:09 | disposition home or self-care (01) ==
LOC: MW.ED 08:30
DX: N83.8 Other noninflammatory disorders of ovary, fallopian tube and broad ligament (principal); R10.13 Epigastric pain; E03.9 Hypothyroidism, unspecified; Z79.890 Hormone replacement therapy; Z79.899 Other long term (current) drug therapy; Z75.8 Other problems related to medical facilities and other health care
CPT/HCPCS: 36415; 74177; 76830; 80053; 81001; 81025; 83690; 85025; 96361; 96374; 96375; 99284; J1885; J2405; J3490; J7030; Q9967

== ENCOUNTER 2024-11-22 12:11 | Emergency (ER) | payer BC ==
[2024-11-22] MEDS: Dexamethasone Sod Phos Preservative Free 10 MG/ML Vial IVPUSH ONE (12:57)
[2024-11-22] MEDS: Ketorolac 30 MG/ML SDV IVPUSH ONE (12:57)
[2024-11-22] MEDS: Prochlorperazine 10 MG/2 ML SDV IVPUSH ONE (12:57)
[2024-11-22] MEDS: diphenhydrAMINE 50 MG/ML SDV IVPUSH ONE (12:58)
[2024-11-22 13:08] LABS: BASOPHILS ABSOLUTE AUTO 0.04 K/uL (0.00-0.20); BASOPHILS PERCENT AUTO 0.6 % (0.0-1.0); EOSINOPHILS ABSOLUTE AUTO 0.06 K/uL (0.00-0.45); EOSINOPHILS PERCENT AUTO 0.8 % (0.0-6.0); IMMATURE GRAN ABSOLUTE AUTO 0.02 K/uL (0.00-0.05); IMMATURE GRAN PERCENT AUTO 0.3 % (0.0-0.4); LYMPHOCYTES ABSOLUTE AUTO 0.89 K/uL (1.00-4.80); LYMPHOCYTES PERCENT AUTO 12.4 % (24.0-44.0); MEAN PLATELET VOLUME 10.4 fL (9.4-12.3); MONOCYTES ABSOLUTE AUTO 0.47 K/uL (0.00-0.80); MONOCYTES PERCENT AUTO 6.6 % (0.0-8.0); NEUTROPHILS ABSOLUTE AUTO 5.68 K/uL (1.80-7.70); NEUTROPHILS PERCENT AUTO 79.3 % (41.0-71.0); NRBC ABSOLUTE 0.00 K/uL (0.00-0.02); NRBC PERCENT 0.0 /100WBC (0.0-0.2); PLATELET COUNT,PLT 220 K/uL (150-400); RED BLOOD CELL COUNT 4.06 M/uL (4.10-5.30); WHITE BLOOD CELL COUNT,WBC 7.16 K/uL (3.9-11.3)
[2024-11-22 13:09] LABS: GLUCOSE,URINE NEGATIVE (NEGATIVE); OCCULT BLOOD,URINE NEGATIVE (NEGATIVE)
[2024-11-22 13:21] LABS: APPEARANCE,URINE HAZY
[2024-11-22 13:22] LABS: EPITHELIAL CELLS,URINE FEW (NONE-FEW)
[2024-11-22 13:30] LABS: A/G RATIO 1.1 (0.9-1.6); ALANINE AMINOTRANSFERASE,ALT 16 IU/L (14-63); ASPARTATE AMNIOTRANSFERASE,AST 17 IU/L (15-37); BILIRUBIN TOTAL 0.7 mg/dL (0.2-1.0); BLOOD UREA NITROGEN,BUN 13 mg/dL (7.0-18.0); CARBON DIOXIDE,CO2 28.6 mmol/L (21.0-32.0); CHLORIDE,CL 103 mmol/L (98-107); CREATININE 1.0 mg/dL (0.6-1.0); ESTIMATED GFR 73 mL/min (>60); GLUCOSE RANDOM 102 mg/dL (74-106); POTASSIUM,K 3.9 mmol/L (3.5-5.1); PROTEIN TOTAL,TP 7.3 g/dL (6.4-8.2); SODIUM,NA 140 mmol/L (136-145)
[2024-11-22 14:25] VITALS: BP 115/73; PULSE 61
== END 2024-11-22 14:24 | disposition home or self-care (01) ==
LOC: MW.ED 12:11
DX: G43.909 Migraine, unspecified, not intractable, without status migrainosus (principal); E03.9 Hypothyroidism, unspecified; Z75.3 Unavailability and inaccessibility of health-care facilities; Z79.890 Hormone replacement therapy; Z79.899 Other long term (current) drug therapy; Z90.49 Acquired absence of other specified parts of digestive tract
CPT/HCPCS: 36415; 80053; 81001; 83735; 85025; 87086; 96361; 96374; 96375; 99284; J0780; J1100; J1200; J1885; J7030

== ENCOUNTER 2025-01-10 17:24 | Emergency (ER) | payer BC ==
[2025-01-10] MEDS ORDERED: Sodium Chloride 0.9% 10 ML Syringe FLUSH PRN (17:37)
[2025-01-10] MEDS ORDERED: Sodium Chloride 0.9% 2.5 ML Syringe FLUSH PRN (17:37)
[2025-01-10 17:58] LABS: BASOPHILS ABSOLUTE AUTO 0.04 K/uL (0.00-0.20); BASOPHILS PERCENT AUTO 0.5 % (0.0-1.0); EOSINOPHILS ABSOLUTE AUTO 0.07 K/uL (0.00-0.45); EOSINOPHILS PERCENT AUTO 0.8 % (0.0-6.0); IMMATURE GRAN ABSOLUTE AUTO 0.01 K/uL (0.00-0.05); IMMATURE GRAN PERCENT AUTO 0.1 % (0.0-0.4); LYMPHOCYTES ABSOLUTE AUTO 1.27 K/uL (1.00-4.80); LYMPHOCYTES PERCENT AUTO 14.9 % (24.0-44.0); MEAN PLATELET VOLUME 10.1 fL (9.4-12.3); MONOCYTES ABSOLUTE AUTO 0.44 K/uL (0.00-0.80); MONOCYTES PERCENT AUTO 5.2 % (0.0-8.0); NEUTROPHILS ABSOLUTE AUTO 6.67 K/uL (1.80-7.70); NEUTROPHILS PERCENT AUTO 78.5 % (41.0-71.0); NRBC ABSOLUTE 0.00 K/uL (0.00-0.02); NRBC PERCENT 0.0 /100WBC (0.0-0.2); PLATELET COUNT,PLT 230 K/uL (150-400); RED BLOOD CELL COUNT 4.03 M/uL (4.10-5.30); WHITE BLOOD CELL COUNT,WBC 8.50 K/uL (3.9-11.3)
[2025-01-10] MEDS: Ketorolac 30 MG/ML SDV IVPUSH ONE (18:25)
[2025-01-10] MEDS: droPERidol 2.5 MG/ML SDV IVPUSH ONE (18:28)
[2025-01-10 18:33] LABS: A/G RATIO 1.1 (0.9-1.6); ALANINE AMINOTRANSFERASE,ALT 19 IU/L (14-63); ASPARTATE AMNIOTRANSFERASE,AST 12 IU/L (15-37); BILIRUBIN TOTAL 0.5 mg/dL (0.2-1.0); BLOOD UREA NITROGEN,BUN 11 mg/dL (7.0-18.0); CARBON DIOXIDE,CO2 29.4 mmol/L (21.0-32.0); CHLORIDE,CL 105 mmol/L (98-107); CREATININE 0.7 mg/dL (0.6-1.0); EST CRCL DRUG DOSING (CG) 92.25 mL/min; GLUCOSE RANDOM 100 mg/dL (74-106); POTASSIUM,K 3.6 mmol/L (3.5-5.1); PROTEIN TOTAL,TP 7.4 g/dL (6.4-8.2); SODIUM,NA 141 mmol/L (136-145)
[2025-01-10 18:35] LABS: ESTIMATED GFR 112 mL/min (>60)
[2025-01-10 19:09] VITALS: BP 150/66; PULSE 49
== END 2025-01-10 19:19 | disposition home or self-care (01) ==
LOC: MW.ED 17:24
DX: G43.909 Migraine, unspecified, not intractable, without status migrainosus (principal); E03.9 Hypothyroidism, unspecified; Z88.8 Allergy status to other drugs, medicaments and biological substances; Z79.890 Hormone replacement therapy; Z79.899 Other long term (current) drug therapy
CPT/HCPCS: 36415; 80053; 83735; 84703; 85025; 85652; 86140; 96361; 96374; 99283; A9270; J1885; J7030; J8540; 99284; J1790